=== PATIENT | male | born 1950 | race Caucasian/White ===

== ENCOUNTER → 2017-01-16 | Outpatient (CLI) | payer MEDICAID ==
--- NOTE | 2017-01-16 15:40 | REP ---
BLADDER ULTRASOUND: HISTORY: Neurogenic bladder. The kidneys are increased in echogenicity. The right kidney measures 5.2 cm in transverse by 5.6 cm in AP by 11.6 cm in cephalocaudal dimensions. The left kidney measures 5.1 cm in transverse by 5.1 cm in AP by 11.5 cm in cephalocaudal dimensions. There is cortical thinning in the right kidney. There is no hydronephrosis or mass. There are no filling defects in the urinary bladder. Bladder volume is 439.7 cubic centimeters. IMPRESSION: 1. The kidneys are increased in echogenicity. This may represent medical renal disease. 2. There is cortical thinning in the right kidney. Signed by Troy Balderrama MD 01/16/2017 03:47 P
[2017-01-16 19:59] LABS: MEAN CORPUSCULAR HEMOGLOBIN 30.6 pg (27.0-33.0); MEAN CORPUSCULAR HGB CONC 33.8 g/dl (32.0-36.5); MEAN CORPUSCULAR VOLUME 90.6 fl (80.0-96.0); PLATELET COUNT, AUTOMATED 271 10^3/uL (150-450); RED CELL DISTRIBUTION WIDTH 13.2 % (11.5-14.5); WHITE BLOOD COUNT 7.4 10^3/uL (4.0-10.0)
[2017-01-16 20:03] LABS: CALCIUM LEVEL 9.9 MG/DL (8.8-10.2); CREATININE FOR GFR 1.39 MG/DL (0.70-1.30); GLOMERULAR FILTRATION RATE 54.8 (>49); POTASSIUM SERUM 4.2 MEQ/L (3.5-5.1)
== END ==
LOC: M SMT 13:05
PROVIDERS: ATTEND Nurse Practitioner Women's Health
DX: N31.9 Neuromuscular dysfunction of bladder, unspecified (principal); N40.1 Benign prostatic hyperplasia with lower urinary tract symptoms

== ENCOUNTER → 2017-12-03 | Outpatient (CLI) | payer MEDICAID | LOC: M RAD 12:16 | DX: N31.9 Neuromuscular dysfunction of bladder, unspecified (principal); N40.1 Benign prostatic hyperplasia with lower urinary tract symptoms | CPT/HCPCS: 76775 ==

== ENCOUNTER → 2017-12-03 | Outpatient (CLI) | payer MEDICAID ==
[2017-12-03 13:40] LABS: HEMATOCRIT 35.7 % (42.0-52.0); HEMOGLOBIN 12.1 g/dl (13.5-17.5); MEAN CORPUSCULAR HEMOGLOBIN 31.5 pg (27.0-33.0); MEAN CORPUSCULAR HGB CONC 33.9 g/dl (32.0-36.5); PLATELET COUNT, AUTOMATED 221 10^3/uL (150-450); RED BLOOD COUNT 3.84 10^6/uL (4.30-6.10); RED CELL DISTRIBUTION WIDTH 12.5 % (11.5-14.5); WHITE BLOOD COUNT 7.9 10^3/uL (4.0-10.0)
[2017-12-03 13:53] LABS: ANION GAP 9 MEQ/L (8-16); BLOOD UREA NITROGEN 50 MG/DL (7-18); CALCIUM LEVEL 10.7 MG/DL (8.8-10.2); CARBON DIOXIDE LEVEL 26 MEQ/L (21-32); CHLORIDE LEVEL 106 MEQ/L (98-107); CREATININE FOR GFR 2.98 MG/DL (0.70-1.30); GLOMERULAR FILTRATION RATE 22.7 (>49); GLUCOSE, FASTING 92 MG/DL (70-100); POTASSIUM SERUM 4.8 MEQ/L (3.5-5.1); SODIUM LEVEL 141 MEQ/L (136-145)
[2017-12-03 13:53] LABS: PSA SCREENING 0.24 NG/ML (< 4.0)
== END ==
LOC: M LAB 12:23
DX: Z12.5 Encounter for screening for malignant neoplasm of prostate (principal); N31.9 Neuromuscular dysfunction of bladder, unspecified
CPT/HCPCS: 80048

== ENCOUNTER → 2018-01-01 | Outpatient (REF) ==
[2018-01-01 10:42] LABS: HEMATOCRIT 29.6 % (42.0-52.0); HEMOGLOBIN 9.7 g/dl (13.5-17.5); MEAN CORPUSCULAR HEMOGLOBIN 30.9 pg (27.0-33.0); MEAN CORPUSCULAR HGB CONC 32.8 g/dl (32.0-36.5); MEAN CORPUSCULAR VOLUME 94.3 fl (80.0-96.0); PLATELET COUNT, AUTOMATED 264 10^3/uL (150-450); RED BLOOD COUNT 3.14 10^6/uL (4.30-6.10); RED CELL DISTRIBUTION WIDTH 12.9 % (11.5-14.5); WHITE BLOOD COUNT 12.8 10^3/uL (4.0-10.0)
[2018-01-01 10:59] LABS: ANION GAP 10 MEQ/L (8-16); BLOOD UREA NITROGEN 50 MG/DL (7-18); CALCIUM LEVEL 9.3 MG/DL (8.8-10.2); CARBON DIOXIDE LEVEL 24 MEQ/L (21-32); CHLORIDE LEVEL 110 MEQ/L (98-107); CREATININE FOR GFR 4.35 MG/DL (0.70-1.30); GLOMERULAR FILTRATION RATE 14.6 (>49); GLUCOSE, FASTING 110 MG/DL (70-100); IRON (FE) 69 UG/DL (65-175); PERCENT SATURATION 25.7 % (19.7-50.0); POTASSIUM SERUM 3.6 MEQ/L (3.5-5.1); SODIUM LEVEL 144 MEQ/L (136-145); TOTAL IRON BINDING CAPACITY 268 UG/DL (250-450)
== END ==
DX: D64.9 Anemia, unspecified (principal)

== ENCOUNTER → 2018-01-02 | Outpatient (REF) ==
[2018-01-02 08:30] LABS: HEMATOCRIT 28.3 % (42.0-52.0); HEMOGLOBIN 9.5 g/dl (13.5-17.5); MEAN CORPUSCULAR HEMOGLOBIN 30.9 pg (27.0-33.0); MEAN CORPUSCULAR HGB CONC 33.6 g/dl (32.0-36.5); MEAN CORPUSCULAR VOLUME 92.2 fl (80.0-96.0); PLATELET COUNT, AUTOMATED 257 10^3/uL (150-450); RED BLOOD COUNT 3.07 10^6/uL (4.30-6.10); WHITE BLOOD COUNT 11.8 10^3/uL (4.0-10.0)
== END ==
DX: D72.829 Elevated white blood cell count, unspecified (principal)

== ENCOUNTER → 2018-01-04 | Outpatient (REF) ==
[2018-01-04 09:42] LABS: HEMATOCRIT 30.5 % (42.0-52.0); MEAN CORPUSCULAR HEMOGLOBIN 31.3 pg (27.0-33.0); MEAN CORPUSCULAR HGB CONC 32.8 g/dl (32.0-36.5); MEAN CORPUSCULAR VOLUME 95.3 fl (80.0-96.0); PLATELET COUNT, AUTOMATED 304 10^3/uL (150-450); RED CELL DISTRIBUTION WIDTH 13.1 % (11.5-14.5); WHITE BLOOD COUNT 11.8 10^3/uL (4.0-10.0)
[2018-01-04 10:17] LABS: ANION GAP 10 MEQ/L (8-16); BLOOD UREA NITROGEN 41 MG/DL (7-18); CALCIUM LEVEL 8.6 MG/DL (8.8-10.2); CARBON DIOXIDE LEVEL 28 MEQ/L (21-32); CHLORIDE LEVEL 105 MEQ/L (98-107); CREATININE FOR GFR 3.18 MG/DL (0.70-1.30); GLUCOSE, FASTING 75 MG/DL (70-100); POTASSIUM SERUM 3.6 MEQ/L (3.5-5.1); SODIUM LEVEL 143 MEQ/L (136-145)
== END ==
DX: N18.9 Chronic kidney disease, unspecified (principal)

== ENCOUNTER → 2018-01-07 | Outpatient (REF) ==
[2018-01-07 10:31] LABS: HEMATOCRIT 32.4 % (42.0-52.0); MEAN CORPUSCULAR HEMOGLOBIN 31.7 pg (27.0-33.0); MEAN CORPUSCULAR VOLUME 93.4 fl (80.0-96.0); PLATELET COUNT, AUTOMATED 423 10^3/uL (150-450); RED BLOOD COUNT 3.47 10^6/uL (4.30-6.10); RED CELL DISTRIBUTION WIDTH 12.8 % (11.5-14.5)
[2018-01-07 10:47] LABS: ANION GAP 10 MEQ/L (8-16); BLOOD UREA NITROGEN 36 MG/DL (7-18); CARBON DIOXIDE LEVEL 29 MEQ/L (21-32); CHLORIDE LEVEL 98 MEQ/L (98-107); CREATININE FOR GFR 3.01 MG/DL (0.70-1.30); GLOMERULAR FILTRATION RATE 22.4 (>49); GLUCOSE, FASTING 184 MG/DL (70-100); POTASSIUM SERUM 3.6 MEQ/L (3.5-5.1); SODIUM LEVEL 137 MEQ/L (136-145)
== END ==
DX: N18.9 Chronic kidney disease, unspecified (principal)

== ENCOUNTER → 2018-01-09 | Outpatient (REF) ==
[2018-01-09 09:28] LABS: HEMATOCRIT 29.9 % (42.0-52.0); HEMOGLOBIN 10.1 g/dl (13.5-17.5); MEAN CORPUSCULAR HEMOGLOBIN 31.1 pg (27.0-33.0); MEAN CORPUSCULAR HGB CONC 33.8 g/dl (32.0-36.5); PLATELET COUNT, AUTOMATED 410 10^3/uL (150-450); RED BLOOD COUNT 3.25 10^6/uL (4.30-6.10); RED CELL DISTRIBUTION WIDTH 12.9 % (11.5-14.5); WHITE BLOOD COUNT 13.5 10^3/uL (4.0-10.0)
== END ==
DX: R31.9 Hematuria, unspecified (principal)

== ENCOUNTER → 2018-01-15 | Outpatient (REF) ==
[2018-01-15 10:10] LABS: HEMATOCRIT 31.3 % (42.0-52.0); HEMOGLOBIN 10.3 g/dl (13.5-17.5); MEAN CORPUSCULAR HGB CONC 32.9 g/dl (32.0-36.5); MEAN CORPUSCULAR VOLUME 94.3 fl (80.0-96.0); PLATELET COUNT, AUTOMATED 370 10^3/uL (150-450); RED BLOOD COUNT 3.32 10^6/uL (4.30-6.10); RED CELL DISTRIBUTION WIDTH 12.5 % (11.5-14.5); WHITE BLOOD COUNT 9.9 10^3/uL (4.0-10.0)
[2018-01-15 10:28] LABS: ANION GAP 8 MEQ/L (8-16); BLOOD UREA NITROGEN 37 MG/DL (7-18); CALCIUM LEVEL 8.9 MG/DL (8.8-10.2); CARBON DIOXIDE LEVEL 30 MEQ/L (21-32); CHLORIDE LEVEL 99 MEQ/L (98-107); CREATININE FOR GFR 2.19 MG/DL (0.70-1.30); GLOMERULAR FILTRATION RATE 32.3 (>49); GLUCOSE, FASTING 91 MG/DL (70-100); SODIUM LEVEL 137 MEQ/L (136-145)
== END ==
DX: N18.9 Chronic kidney disease, unspecified (principal)

== ENCOUNTER → 2018-01-22 | Outpatient (REF) ==
[2018-01-22 10:11] LABS: HEMATOCRIT 30.6 % (42.0-52.0); MEAN CORPUSCULAR HEMOGLOBIN 30.3 pg (27.0-33.0); MEAN CORPUSCULAR HGB CONC 32.7 g/dl (32.0-36.5); MEAN CORPUSCULAR VOLUME 92.7 fl (80.0-96.0); PLATELET COUNT, AUTOMATED 310 10^3/uL (150-450); RED CELL DISTRIBUTION WIDTH 12.9 % (11.5-14.5); WHITE BLOOD COUNT 10.2 10^3/uL (4.0-10.0)
[2018-01-22 10:37] LABS: ANION GAP 9 MEQ/L (8-16); BLOOD UREA NITROGEN 32 MG/DL (7-18); CALCIUM LEVEL 9.1 MG/DL (8.8-10.2); CARBON DIOXIDE LEVEL 29 MEQ/L (21-32); CHLORIDE LEVEL 103 MEQ/L (98-107); CREATININE FOR GFR 1.99 MG/DL (0.70-1.30); GLOMERULAR FILTRATION RATE 36.1 (>49); GLUCOSE, FASTING 86 MG/DL (70-100); POTASSIUM SERUM 4.2 MEQ/L (3.5-5.1); SODIUM LEVEL 141 MEQ/L (136-145)
== END ==
DX: N18.9 Chronic kidney disease, unspecified (principal)

== ENCOUNTER → 2018-01-29 | Outpatient (REF) ==
[2018-01-29 10:22] LABS: HEMATOCRIT 32.7 % (42.0-52.0); HEMOGLOBIN 10.6 g/dl (13.5-17.5); MEAN CORPUSCULAR HEMOGLOBIN 30.6 pg (27.0-33.0); MEAN CORPUSCULAR HGB CONC 32.4 g/dl (32.0-36.5); MEAN CORPUSCULAR VOLUME 94.5 fl (80.0-96.0); PLATELET COUNT, AUTOMATED 325 10^3/uL (150-450); RED BLOOD COUNT 3.46 10^6/uL (4.30-6.10); RED CELL DISTRIBUTION WIDTH 13.2 % (11.5-14.5); WHITE BLOOD COUNT 9.9 10^3/uL (4.0-10.0)
[2018-01-29 10:48] LABS: ANION GAP 9 MEQ/L (8-16); BLOOD UREA NITROGEN 36 MG/DL (7-18); CALCIUM LEVEL 9.5 MG/DL (8.8-10.2); CARBON DIOXIDE LEVEL 29 MEQ/L (21-32); CHLORIDE LEVEL 103 MEQ/L (98-107); CREATININE FOR GFR 1.96 MG/DL (0.70-1.30); GLOMERULAR FILTRATION RATE 36.7 (>49); GLUCOSE, FASTING 87 MG/DL (70-100); POTASSIUM SERUM 4.3 MEQ/L (3.5-5.1); SODIUM LEVEL 141 MEQ/L (136-145)
== END ==
DX: N18.9 Chronic kidney disease, unspecified (principal)

== ENCOUNTER → 2018-02-06 | Outpatient (REF) ==
[2018-02-06 09:58] LABS: HEMATOCRIT 32.5 % (42.0-52.0); MEAN CORPUSCULAR HEMOGLOBIN 30.8 pg (27.0-33.0); MEAN CORPUSCULAR HGB CONC 33.8 g/dl (32.0-36.5); PLATELET COUNT, AUTOMATED 349 10^3/uL (150-450); RED BLOOD COUNT 3.57 10^6/uL (4.30-6.10); WHITE BLOOD COUNT 8.5 10^3/uL (4.0-10.0)
[2018-02-06 10:22] LABS: CALCIUM LEVEL 10.1 MG/DL (8.8-10.2); CREATININE FOR GFR 1.74 MG/DL (0.70-1.30); GLOMERULAR FILTRATION RATE 42.1 (>49); POTASSIUM SERUM 3.8 MEQ/L (3.5-5.1)
== END ==
PROVIDERS: ATTEND Internal Medicine
DX: N18.9 Chronic kidney disease, unspecified (principal)

== ENCOUNTER → 2018-05-07 | Outpatient (REF) | payer MEDICARE, MEDICAID ==
[2018-05-07 13:14] LABS: BASO # 0.1 10^3/uL (0.0-0.2); BASO % 1.3 % (0.0-1.0); EOS # 0.4 10^3/uL (0.0-0.50); EOS % 7.9 % (0.0-3.0); HEMOGLOBIN 11.6 g/dl (13.5-17.5); LYMPH % 18.5 % (24.0-44.0); MEAN CORPUSCULAR HEMOGLOBIN 29.4 pg (27.0-33.0); MEAN CORPUSCULAR HGB CONC 32.2 g/dl (32.0-36.5); MEAN CORPUSCULAR VOLUME 91.4 fl (80.0-96.0); MONO # 0.4 10^3/uL (0.0-0.8); MONO % 6.8 % (0.0-5.0); NEUTROPHILS # 3.5 10^3/uL (1.8-7.7); NEUTROPHILS % 65.1 % (36.0-66.0); PLATELET COUNT, AUTOMATED 275 10^3/uL (150-450); RED BLOOD COUNT 3.94 10^6/uL (4.30-6.10); WHITE BLOOD COUNT 5.3 10^3/uL (4.0-10.0)
[2018-05-07 13:29] LABS: CALCIUM LEVEL 8.8 MG/DL (8.8-10.2); CREATININE FOR GFR 1.49 MG/DL (0.70-1.30); GLOMERULAR FILTRATION RATE 50.4 (>49); PHOSPHORUS LEVEL 2.4 MG/DL (2.5-4.9); POTASSIUM SERUM 3.9 MEQ/L (3.5-5.1)
[2018-05-07 13:30] LABS: ALBUMIN 3.5 GM/DL (3.2-5.2); BILIRUBIN,TOTAL 0.2 MG/DL (0.2-1.0); MAGNESIUM LEVEL 1.5 MG/DL (1.8-2.4); TOTAL PROTEIN 6.6 GM/DL (6.4-8.2)
== END ==
LOC: M LAB REF 11:58
PROVIDERS: ATTEND Family Medicine
DX: N18.3 Chronic kidney disease, stage 3 (moderate) (principal); E87.5 Hyperkalemia

== ENCOUNTER 2021-02-23 20:27 | Inpatient (IN) | payer MEDICARE, MEDICAID ==
[~2021-02-23] VITALS: Ht 172.7 cm; Wt 87.0 kg
[2021-02-23 22:15] VITALS: BP 136/83
[2021-02-23 22:38] LABS: BASO # 0.1 10^3/uL (0.0-0.2); BASO % 0.6 % (0.0-1.0); EOS # 0.2 10^3/uL (0.0-0.5); EOS % 1.5 % (0.0-3.0); HEMATOCRIT 40.1 % (42.0-52.0); HEMOGLOBIN 13.3 g/dl (13.5-17.5); LYMPH # 1.2 10^3/uL (1.5-5.0); LYMPH % 8.6 % (24.0-44.0); MEAN CORPUSCULAR HEMOGLOBIN 32.2 pg (27.0-33.0); MEAN CORPUSCULAR HGB CONC 33.2 g/dl (32.0-36.5); MEAN CORPUSCULAR VOLUME 97.1 fl (80.0-96.0); MONO # 1.3 10^3/uL (0.0-0.8); MONO % 9.2 % (2.0-8.0); NEUTROPHILS % 79.7 % (36.0-66.0); PLATELET COUNT, AUTOMATED 296 10^3/uL (150-450); RED BLOOD COUNT 4.13 10^6/uL (4.30-6.10); WHITE BLOOD COUNT 13.9 10^3/uL (4.0-10.0)
[2021-02-23] MEDS ORDERED: MORPHINE 2 MG/ML 1ML VIAL (J2270) IV PRN (23:00)
[2021-02-23] MEDS ORDERED: NS 1,000 ML IV SCH (23:00)
[2021-02-23] MEDS ORDERED: MOM 30ML SUSPENSION UDC PO PRN (23:00)
[2021-02-23 23:07] LABS: ALBUMIN 3.6 GM/DL (3.2-5.2); BILIRUBIN,TOTAL 0.5 MG/DL (0.2-1.0); CALCIUM LEVEL 14.2 MG/DL (8.8-10.2); CREATININE FOR GFR 6.25 MG/DL (0.70-1.30); GLOMERULAR FILTRATION RATE 9.5 (>49); POTASSIUM SERUM 5.9 MEQ/L (3.5-5.1)
[2021-02-23] MEDS ORDERED: DULO30CA9 PO (23:51)
[2021-02-23] MEDS ORDERED: RA M500C PO (23:51)
[2021-02-23] MEDS ORDERED: FERR1TAB8 PO (23:51)
[2021-02-23] MEDS ORDERED: FAMO20TA4 PO (23:51)
[2021-02-23] MEDS ORDERED: PANT40TA29 PO (23:51)
[2021-02-23] MEDS ORDERED: AMLO2.5T3 PO (23:51)
[2021-02-23] MEDS ORDERED: FISH1000 PO (23:51)
[2021-02-23] MEDS ORDERED: GABA-282 PO (23:51)
[2021-02-23] MEDS ORDERED: ASPI-161 PO (23:51)
[2021-02-23] MEDS ORDERED: FINA5TAB2 PO (23:51)
[2021-02-23] MEDS ORDERED: ATOR1TAB21 PO (23:51)
[2021-02-23] MEDS ORDERED: METO1TAB7 PO (23:51)
[2021-02-23] MEDS ORDERED: MIRT-60 PO (23:51)
[2021-02-23] MEDS ORDERED: HOME MED LIST COMPLETE! XX SCH (23:55)
[2021-02-24 00:08] LABS: APPEARANCE, URINE HAZY (CLEAR); BACTERIA, URINE AUTO 1+ (NEGATIVE); BILIRUBIN, URINE AUTO NEGATIVE (NEGATIVE); BLOOD, URINE BLOOD 1+ (NEGATIVE); COLOR, URINE YELLOW (YELLOW); GLUCOSE, URINE (UA) AUTO NEGATIVE (NEGATIVE); KETONE, URINE AUTO NEGATIVE (NEGATIVE); LEUKOCYTE ESTERASE, URINE AUTO 3+ (NEGATIVE); MUCUS, URINE SMALL (NEGATIVE); NITRITE, URINE AUTO NEGATIVE (NEGATIVE); PROTEIN, URINE AUTO 1+ mg/dL (NEGATIVE); RBC, URINE AUTO 4 /HPF (0-3); SPECIFIC GRAVITY URINE AUTO 1.012 (1.002-1.035); SQUAMOUS EPITHELIAL CELL UR AU 0 /HPF (0-6); URIC ACID CRYSTALS SMALL; UROBILINOGEN, URINE AUTO 0.2 mg/dL (0.0-2.0); WBC, URINE AUTO 86 /HPF (0-3)
[2021-02-24 00:20] LABS: CREATININE,RANDOM URINE 68.7 MG/DL
[2021-02-24 00:40] LABS: MAGNESIUM LEVEL 3.7 MG/DL (1.8-2.4)
[2021-02-24] MEDS ORDERED: SOD POLYSTYRENE SULFONATE SUSP 15 GM/60 ML UD PO ONE (02:00)
[2021-02-24] MEDS: ACETAMINOPHEN TAB 650MG DOSE (2X325MG) PO PRN ×2 (03:02→09:54)
[2021-02-24] MEDS: ATORVASTATIN 20 MG TAB PO SCH (03:02)
[2021-02-24] MEDS: MIRTAZAPINE 15 MG TAB PO SCH ×2 (03:02→21:00)
[2021-02-24] MEDS: FINASTERIDE 5 MG TAB PO SCH ×2 (03:02→21:00)
[2021-02-24] MEDS: METOPROLOL SUCC (TopROL XL) 50MG **XL** TAB PO SCH (03:03)
[2021-02-24 04:35] LABS: HEMATOCRIT 35.2 % (42.0-52.0); HEMOGLOBIN 11.6 g/dl (13.5-17.5); MEAN CORPUSCULAR HEMOGLOBIN 32.1 pg (27.0-33.0); MEAN CORPUSCULAR VOLUME 97.5 fl (80.0-96.0); PLATELET COUNT, AUTOMATED 249 10^3/uL (150-450); RED BLOOD COUNT 3.61 10^6/uL (4.30-6.10); WHITE BLOOD COUNT 11.6 10^3/uL (4.0-10.0)
[2021-02-24 05:11] LABS: ALBUMIN 3.1 GM/DL (3.2-5.2); BILIRUBIN,TOTAL 0.4 MG/DL (0.2-1.0); CALCIUM LEVEL 12.9 MG/DL (8.8-10.2); CREATININE FOR GFR 6.21 MG/DL (0.70-1.30); GLOMERULAR FILTRATION RATE 9.6 (>49); MAGNESIUM LEVEL 3.4 MG/DL (1.8-2.4); POTASSIUM SERUM 5.2 MEQ/L (3.5-5.1); TOTAL PROTEIN 7.1 GM/DL (6.4-8.2)
[2021-02-24] MEDS: HEPARIN SOD (PORCINE) 5000UNITS/ML 1ML VIAL/SYRINGE SC SCH ×2 (05:33→14:00)
[2021-02-24 06:00] VITALS: BP 130/77
[2021-02-24] MEDS ORDERED: ASPIRIN 81MG ENTERIC TABLET PO SCH (09:00)
[2021-02-24] MEDS: DOCUSATE SODIUM 100MG CAPSULE PO SCH ×2 (09:54→21:00)
[2021-02-24] MEDS: DULoxetine 30MG CAPSULE (CYMBALTA) PO SCH (09:54)
[2021-02-24] MEDS: PANTOPRAZOLE 40MG TAB (PROTONIX) PO SCH (09:54)
[2021-02-24] MEDS: GABAPENTIN 300 MG CAP PO SCH (09:54)
[2021-02-24 11:02] LABS: CALCIUM LEVEL 13.2 MG/DL (8.8-10.2); CREATININE FOR GFR 6.16 MG/DL (0.70-1.30); GLOMERULAR FILTRATION RATE 9.7 (>49); POTASSIUM SERUM 4.8 MEQ/L (3.5-5.1)
[2021-02-24] MEDS ORDERED: NS 1,000 ML IV SCH (11:15)
[2021-02-24 12:35] LABS: TOTAL 25(OH) VITAMIN D 53.7 NG/ML (30.0-100.0)
[2021-02-24 12:36] LABS: PTH INTACT 12.2 PG/ML (18.5-88.0)
[2021-02-24 14:00] VITALS: BP 130/71
[2021-02-24] MEDS ORDERED: SUGAMMADEX SODIUM 500 MG/5 ML VIAL (BRIDION) As Ordered ONE (16:36)
[2021-02-24] MEDS ORDERED: KETOROLAC 60MG 2ML VIAL As Ordered ONE (16:36)
[2021-02-24] MEDS ORDERED: dexameTHASONE 4 MG/ML 1ML VIAL (J1100 PER 1MG) As Ordered ONE (16:36)
[2021-02-24] MEDS ORDERED: propofoL 200 MG/20 ML VIAL As Ordered ONE (16:36)
[2021-02-24] MEDS ORDERED: fentaNYL 100 MCG/2 ML INJECTION (J3010) As Ordered ONE (16:36)
[2021-02-24] MEDS ORDERED: ACETAMINOPHEN 1000MG 100ML IV BTL (OFIRMEV) (J0131 PER 10MG) As Ordered ONE (16:36)
[2021-02-24] MEDS ORDERED: HYDROmorphone HCL 2MG/ML 1ML VIAL As Ordered ONE (16:36)
[2021-02-24] MEDS ORDERED: MIDAZOLAM INJ 2MG/2ML VIAL (J2250 PER 1MG) As Ordered ONE (16:36)
[2021-02-24] MEDS ORDERED: ROCURONIUM BROMIDE 50 MG/5 ML VIAL As Ordered ONE (16:36)
[2021-02-24] MEDS ORDERED: ONDANSETRON 4MG/2ML VIAL As Ordered ONE (16:36)
[2021-02-24] MEDS ORDERED: LIDOCAINE 2% 100MG/5ML SDV (FOR ANES.) As Ordered ONE (16:36)
[2021-02-24] MEDS ORDERED: TRANEXAMIC ACID 100 MG/ML 10ML VIAL As Ordered ONE (16:42)
[2021-02-24] MEDS ORDERED: ceFAZolin 2 GM/D5W 50 ML IV BAG (J0690 PER 500MG) As Ordered ONE (17:03)
[2021-02-24] MEDS ORDERED: PHENYLephrine 500MCG 5ML (100MCG/ML) SYRINGE As Ordered ONE ×2 (17:33→18:10)
[2021-02-24] MEDS ORDERED: ePHEDrine SULFATE 25 MG/5 ML(5MG/ML) SYRINGE As Ordered ONE ×2 (17:33→18:10)
[2021-02-24] MEDS ORDERED: BUPIVACAINE HCL 0.5% 30 ML VIAL As Ordered ONE (17:38)
[2021-02-24] MEDS ORDERED: ROPIVA 125MG/EPINEPH 0.25MG/CLONID 40MCG/KETOR 15MG IN NS 50ML SYRINGE PA ONE (18:00)
[2021-02-24] MEDS ORDERED: GLYCOPYRROLATE INJ 0.2 MG/ML 2 ML VIAL As Ordered ONE (18:11)
[2021-02-24] MEDS ORDERED: METOCLOPRAMIDE INJ 10MG/2ML VIAL (J2765 PER 1) As Ordered ONE (18:11)
[2021-02-24] MEDS ORDERED: ONDANSETRON 4MG/2ML VIAL IV PRN ×2 (20:45→23:55)
[2021-02-24] MEDS ORDERED: HYDROMORPHONE HCL 0.5 MG/ 0.5 ML SYRINGE (J1170 PER 1) IV PRN (20:45)
[2021-02-24] MEDS ORDERED: fentaNYL 100 MCG/2 ML INJECTION (J3010) IV PRN (20:45)
[2021-02-24] MEDS ORDERED: oxyCODONE 5MG TAB PO PRN (20:45)
[2021-02-24] MEDS ORDERED: NALOXONE INJ 0.4MG/1ML VIAL (J2310 PER 1MG) As Ordered ONE (21:17)
[2021-02-24] MEDS ORDERED: NALOXONE INJ 0.4MG/1ML VIAL (J2310 PER 1MG) IV STA (21:29)
[2021-02-24 22:05] VITALS: BP 127/78
[2021-02-24 22:30] VITALS: BP 128/78
[2021-02-24 23:00] VITALS: BP 103/71
[2021-02-24] MEDS ORDERED: LR 1,000 ML IV SCH (23:55)
[2021-02-25] VITALS (8 sets, daily range): BP systolic 103–133; BP diastolic 59–82
[2021-02-25] MEDS ORDERED: oxyCODONE 5MG TAB PO PRN ×2 (00:05)
[2021-02-25] MEDS ORDERED: traMADol 50 MG TAB PO PRN (00:05)
[2021-02-25] MEDS: HEPARIN SOD (PORCINE) 5000UNITS/ML 1ML VIAL/SYRINGE SC SCH ×4 (01:07→20:54)
[2021-02-25] MEDS: ceFAZolin SOD 2 GM in IV 1 EA IV SCH ×2 (03:32→11:30)
[2021-02-25 06:21] LABS: VENOUS HCO3 21.8 MEQ/L (23.0-27.0); VENOUS O2 SATURATION 98.6 % (60.0-80.0); VENOUS PARTIAL PRESSURE CO2 33.4 mmHg (38.0-50.0); VENOUS PARTIAL PRESSURE O2 125.9 mmHg (30.0-50.0); VENOUS PH 7.432 UNITS (7.330-7.430); VENOUS STANDARD HCO3 22.8 MEQ/L; VENOUS TOTAL CO2 22.8 MEQ/L (24.0-28.0)
[2021-02-25 06:48] LABS: CALCIUM LEVEL 11.2 MG/DL (8.8-10.2); CREATININE FOR GFR 6.35 MG/DL (0.70-1.30); GLOMERULAR FILTRATION RATE 9.4 (>49); PHOSPHORUS LEVEL 5.3 MG/DL (2.5-4.9); POTASSIUM SERUM 5.4 MEQ/L (3.5-5.1)
[2021-02-25] MEDS: FAMOTIDINE 20 MG TAB PO SCH (07:06)
[2021-02-25] MEDS: ACETAMINOPHEN TAB 650MG DOSE (2X325MG) PO SCH ×4 (07:07→18:00)
[2021-02-25] MEDS: ATORVASTATIN 20 MG TAB PO SCH ×2 (07:07→20:53)
[2021-02-25] MEDS: METOPROLOL SUCC (TopROL XL) 50MG **XL** TAB PO SCH ×2 (07:11→20:54)
[2021-02-25 08:34] LABS: BASO % 0.1 % (0.0-1.0); HEMATOCRIT 31.6 % (42.0-52.0); HEMOGLOBIN 10.1 g/dl (13.5-17.5); LYMPH # 0.5 10^3/uL (1.5-5.0); LYMPH % 5.8 % (24.0-44.0); MEAN CORPUSCULAR HEMOGLOBIN 31.6 pg (27.0-33.0); MEAN CORPUSCULAR VOLUME 98.8 fl (80.0-96.0); MONO # 0.3 10^3/uL (0.0-0.8); MONO % 3.7 % (2.0-8.0); NEUTROPHILS # 8.3 10^3/uL (1.5-8.5); NEUTROPHILS % 90.1 % (36.0-66.0); PLATELET COUNT, AUTOMATED 198 10^3/uL (150-450); WHITE BLOOD COUNT 9.2 10^3/uL (4.0-10.0)
[2021-02-25] MEDS: ASPIRIN 81MG ENTERIC TABLET PO SCH ×2 (08:44→20:53)
[2021-02-25] MEDS: DULoxetine 30MG CAPSULE (CYMBALTA) PO SCH (08:44)
[2021-02-25] MEDS: GABAPENTIN 300 MG CAP PO SCH (08:45)
[2021-02-25] MEDS: DOCUSATE SODIUM 100MG CAPSULE PO SCH ×2 (08:45→20:53)
[2021-02-25] MEDS: PANTOPRAZOLE 40MG TAB (PROTONIX) PO SCH (08:45)
[2021-02-25] MEDS: ASCORBIC ACID 500 MG TAB PO SCH (08:45)
[2021-02-25] MEDS ORDERED: LIDOCAINE 1% MDV 20ML VIAL As Ordered ONE (10:24)
[2021-02-25] MEDS ORDERED: MIDAZOLAM INJ 2MG/2ML VIAL (J2250 PER 1MG) As Ordered ONE (10:38)
[2021-02-25] MEDS ORDERED: diphenhydrAMINE 50MG/ML VIAL (J1200) As Ordered ONE (10:38)
[2021-02-25] MEDS ORDERED: fentaNYL 100 MCG/2 ML INJECTION (J3010) As Ordered ONE (10:38)
[2021-02-25 12:31] LABS: HEPATITIS B CORE ANTIBODY IGM NEGATIVE (NEGATIVE); HEPATITIS B SURFACE ANTIBODY NEGATIVE (POSITIVE); HEPATITIS B SURFACE ANTIGEN NEGATIVE (NEGATIVE); HEPATITIS C VIRUS ABY INDEX < 0.0 INDEX (<0.8)
[2021-02-25] MEDS ORDERED: SODIUM CHLORIDE 0.9% 1000ML IV PRN (12:40)
[2021-02-25] MEDS: MIRTAZAPINE 15 MG TAB PO SCH (20:53)
[2021-02-25] MEDS: FINASTERIDE 5 MG TAB PO SCH (20:53)
[2021-02-25] MEDS: SENNA 8.6 MG TAB (SENOKOT) PO PRN (20:54)
[2021-02-25 22:05] LABS: RSV AMPLIFICATION NEGATIVE (NEGATIVE)
[2021-02-26] MEDS ORDERED: UNRESOLVED CLARIFICATION ENTRY XX SCH (00:01)
[2021-02-26] MEDS: ACETAMINOPHEN TAB 650MG DOSE (2X325MG) PO SCH ×5 (00:07→23:26)
[2021-02-26 02:16] VITALS: BP 123/79
[2021-02-26 06:00] VITALS: BP 138/79
[2021-02-26] MEDS: HEPARIN SOD (PORCINE) 5000UNITS/ML 1ML VIAL/SYRINGE SC SCH ×3 (06:10→22:09)
[2021-02-26] MEDS: PANTOPRAZOLE 40MG TAB (PROTONIX) PO SCH (06:16)
[2021-02-26] MEDS: ASPIRIN 81MG ENTERIC TABLET PO SCH ×2 (06:16→22:08)
[2021-02-26] MEDS: DULoxetine 30MG CAPSULE (CYMBALTA) PO SCH (06:16)
[2021-02-26] MEDS: GABAPENTIN 300 MG CAP PO SCH (06:16)
[2021-02-26] MEDS: ASCORBIC ACID 500 MG TAB PO SCH (06:16)
[2021-02-26] MEDS: DOCUSATE SODIUM 100MG CAPSULE PO SCH ×2 (06:16→22:08)
[2021-02-26 06:37] LABS: BASO % 0.4 % (0.0-1.0); EOS # 0.3 10^3/uL (0.0-0.5); EOS % 2.8 % (0.0-3.0); HEMATOCRIT 29.3 % (42.0-52.0); HEMOGLOBIN 9.5 g/dl (13.5-17.5); LYMPH % 11.1 % (24.0-44.0); MEAN CORPUSCULAR HGB CONC 32.4 g/dl (32.0-36.5); MEAN CORPUSCULAR VOLUME 98.7 fl (80.0-96.0); MONO # 0.9 10^3/uL (0.0-0.8); MONO % 9.9 % (2.0-8.0); NEUTROPHILS % 75.3 % (36.0-66.0); PLATELET COUNT, AUTOMATED 201 10^3/uL (150-450); RED BLOOD COUNT 2.97 10^6/uL (4.30-6.10); WHITE BLOOD COUNT 9.3 10^3/uL (4.0-10.0)
[2021-02-26 07:15] LABS: CALCIUM LEVEL 11.1 MG/DL (8.8-10.2); CREATININE FOR GFR 3.91 MG/DL (0.70-1.30); GLOMERULAR FILTRATION RATE 16.4 (>49); MAGNESIUM LEVEL 2.4 MG/DL (1.8-2.4); POTASSIUM SERUM 4.3 MEQ/L (3.5-5.1)
[2021-02-26] MEDS ORDERED: SODIUM CHLORIDE 0.9% 1000ML IV PRN (08:15)
[2021-02-26] MEDS ORDERED: ISOVUE-370 76% 100ML VIAL As Ordered ONE (08:19)
[2021-02-26] MEDS: FERROUS SULFATE 325MG TAB PO SCH (12:49)
[2021-02-26 14:00] VITALS: BP 116/67
[2021-02-26 21:57] VITALS: BP 145/79
[2021-02-26] MEDS: MIRTAZAPINE 15 MG TAB PO SCH (22:08)
[2021-02-26] MEDS: FAMOTIDINE 20 MG TAB PO SCH (22:08)
[2021-02-26] MEDS: ATORVASTATIN 20 MG TAB PO SCH (22:08)
[2021-02-26] MEDS: FINASTERIDE 5 MG TAB PO SCH (22:08)
[2021-02-26] MEDS: METOPROLOL SUCC (TopROL XL) 50MG **XL** TAB PO SCH (22:09)
[2021-02-26] MEDS: SENNA 8.6 MG TAB (SENOKOT) PO PRN (22:09)
[2021-02-27 05:18] VITALS: BP 137/97
[2021-02-27] MEDS: HEPARIN SOD (PORCINE) 5000UNITS/ML 1ML VIAL/SYRINGE SC SCH ×3 (05:28→20:36)
[2021-02-27] MEDS: ACETAMINOPHEN TAB 650MG DOSE (2X325MG) PO SCH (05:29)
[2021-02-27 06:06] LABS: BASO # 0.1 10^3/uL (0.0-0.2); BASO % 0.8 % (0.0-1.0); EOS # 0.8 10^3/uL (0.0-0.5); EOS % 7.8 % (0.0-3.0); HEMATOCRIT 32.6 % (42.0-52.0); HEMOGLOBIN 10.4 g/dl (13.5-17.5); LYMPH # 1.2 10^3/uL (1.5-5.0); LYMPH % 11.6 % (24.0-44.0); MEAN CORPUSCULAR HEMOGLOBIN 32.2 pg (27.0-33.0); MEAN CORPUSCULAR HGB CONC 31.9 g/dl (32.0-36.5); MEAN CORPUSCULAR VOLUME 100.9 fl (80.0-96.0); MONO % 9.2 % (2.0-8.0); NEUTROPHILS # 7.4 10^3/uL (1.5-8.5); PLATELET COUNT, AUTOMATED 221 10^3/uL (150-450); RED BLOOD COUNT 3.23 10^6/uL (4.30-6.10); WHITE BLOOD COUNT 10.5 10^3/uL (4.0-10.0)
[2021-02-27 06:33] LABS: CALCIUM LEVEL 10.5 MG/DL (8.8-10.2); CREATININE FOR GFR 3.21 MG/DL (0.70-1.30); GLOMERULAR FILTRATION RATE 20.6 (>49); MAGNESIUM LEVEL 1.9 MG/DL (1.8-2.4); PHOSPHORUS LEVEL 2.9 MG/DL (2.5-4.9); POTASSIUM SERUM 4.4 MEQ/L (3.5-5.1)
[2021-02-27] MEDS: DOCUSATE SODIUM 100MG CAPSULE PO SCH ×2 (08:19→20:35)
[2021-02-27] MEDS: PANTOPRAZOLE 40MG TAB (PROTONIX) PO SCH (08:19)
[2021-02-27] MEDS: DULoxetine 30MG CAPSULE (CYMBALTA) PO SCH (08:19)
[2021-02-27] MEDS: GABAPENTIN 300 MG CAP PO SCH (08:19)
[2021-02-27] MEDS: FERROUS SULFATE 325MG TAB PO SCH (08:19)
[2021-02-27] MEDS: ASPIRIN 81MG ENTERIC TABLET PO SCH ×2 (08:19→20:36)
[2021-02-27] MEDS: ASCORBIC ACID 500 MG TAB PO SCH (08:19)
[2021-02-27] MEDS: ACETAMINOPHEN TAB 650MG DOSE (2X325MG) PO PRN ×2 (13:32→20:37)
[2021-02-27 14:00] VITALS: BP 136/88
[2021-02-27 20:27] VITALS: BP 138/87
[2021-02-27 20:36] VITALS: BP 138/87
[2021-02-27] MEDS: FINASTERIDE 5 MG TAB PO SCH (20:36)
[2021-02-27] MEDS: MIRTAZAPINE 15 MG TAB PO SCH (20:36)
[2021-02-27] MEDS: ATORVASTATIN 20 MG TAB PO SCH (20:36)
[2021-02-27] MEDS: METOPROLOL SUCC (TopROL XL) 50MG **XL** TAB PO SCH (20:36)
[2021-02-28] MEDS: HEPARIN SOD (PORCINE) 5000UNITS/ML 1ML VIAL/SYRINGE SC SCH ×2 (05:49→13:47)
[2021-02-28 06:00] VITALS: BP 143/90
[2021-02-28 06:01] LABS: BASO # 0.1 10^3/uL (0.0-0.2); BASO % 0.4 % (0.0-1.0); EOS % 8.6 % (0.0-3.0); HEMATOCRIT 30.5 % (42.0-52.0); HEMOGLOBIN 9.8 g/dl (13.5-17.5); LYMPH # 1.2 10^3/uL (1.5-5.0); LYMPH % 10.5 % (24.0-44.0); MEAN CORPUSCULAR HEMOGLOBIN 32.1 pg (27.0-33.0); MEAN CORPUSCULAR HGB CONC 32.1 g/dl (32.0-36.5); MONO # 0.9 10^3/uL (0.0-0.8); MONO % 8.3 % (2.0-8.0); NEUTROPHILS # 7.9 10^3/uL (1.5-8.5); NEUTROPHILS % 71.4 % (36.0-66.0); PLATELET COUNT, AUTOMATED 234 10^3/uL (150-450); RED BLOOD COUNT 3.05 10^6/uL (4.30-6.10); WHITE BLOOD COUNT 11.1 10^3/uL (4.0-10.0)
[2021-02-28] MEDS ORDERED: DARBEPOETIN 100 MCG/0.5 ML *DIALYSIS* SYRINGE (J0882) IV SCH (07:15)
[2021-02-28] MEDS ORDERED: SODIUM CHLORIDE 0.9% 1000ML IV PRN (07:15)
[2021-02-28] MEDS: PANTOPRAZOLE 40MG TAB (PROTONIX) PO SCH (08:16)
[2021-02-28] MEDS: DOCUSATE SODIUM 100MG CAPSULE PO SCH (08:16)
[2021-02-28] MEDS: GABAPENTIN 300 MG CAP PO SCH (08:16)
[2021-02-28] MEDS: FERROUS SULFATE 325MG TAB PO SCH (08:16)
[2021-02-28] MEDS: ASPIRIN 81MG ENTERIC TABLET PO SCH (08:16)
[2021-02-28] MEDS: ACETAMINOPHEN TAB 650MG DOSE (2X325MG) PO PRN ×2 (08:16→14:40)
[2021-02-28] MEDS: DULoxetine 30MG CAPSULE (CYMBALTA) PO SCH (08:16)
[2021-02-28] MEDS: ASCORBIC ACID 500 MG TAB PO SCH (08:16)
[2021-02-28 09:30] LABS: ALBUMIN 2.7 GM/DL (3.2-5.2); CALCIUM LEVEL 10.1 MG/DL (8.8-10.2); CREATININE FOR GFR 3.57 MG/DL (0.70-1.30); GLOMERULAR FILTRATION RATE 18.2 (>49); PHOSPHORUS LEVEL 2.6 MG/DL (2.5-4.9); POTASSIUM SERUM 4.4 MEQ/L (3.5-5.1)
[2021-02-28] MEDS ORDERED: ASPI-551 PO (17:01)
[2021-03-01 12:07] LABS: PTH RELATED PEPTIDE < 2.0 pmol/L (.)
[2021-03-01 12:55] LABS: ALBUMIN 3.61 GM/DL (3.29-5.55); ALBUMIN % 51.6 % (55.8-66.1); ALPHA-1-GLOBULIN % 6.2 % (2.9-4.9); ALPHA-1-GLOBULINS 0.43 GM/DL (0.17-0.41); ALPHA-2-GLOBULINS 0.83 GM/DL (0.42-0.99); ALPHA-2-GLOBULINS % 11.9 % (7.1-11.8); BETA-1-GLOBULINS 0.45 GM/DL (0.28-0.60); BETA-1-GLOBULINS % 6.4 % (4.7-7.2); BETA-2-GLOBULINS 0.47 GM/DL (0.19-0.55); BETA-2-GLOBULINS % 6.7 % (3.2-6.5); GAMMA GLOBULIN % 17.2 % (11.1-18.8)
== END 2021-02-28 18:13 | DRG 673 ==
LOC: EEVIPCON 21:45 → M MSPAV 21:45
PROVIDERS: ADMIT Internal Medicine; ATTEND Internal Medicine
PROC: 0SRS0JA Replacement of Left Hip Joint, Femoral Surface with Synthetic Substitute, Uncemented, Open Approach (ICD-10-PCS; 2021-02-24)
PROC: 02HV33Z Insertion of Infusion Device into Superior Vena Cava, Percutaneous Approach (ICD-10-PCS; 2021-02-25)
PROC: 5A1D70Z Performance of Urinary Filtration, Intermittent, Less than 6 Hours Per Day (ICD-10-PCS; 2021-02-25)
PROC: 0JH63XZ Insertion of Tunneled Vascular Access Device into Chest Subcutaneous Tissue and Fascia, Percutaneous Approach (ICD-10-PCS; principal; 2021-02-25 10:21)
DX: N17.9 Acute kidney failure, unspecified (principal); S72.002A Fracture of unspecified part of neck of left femur, initial encounter for closed fracture; J96.01 Acute respiratory failure with hypoxia; I69.354 Hemiplegia and hemiparesis following cerebral infarction affecting left non-dominant side; E87.5 Hyperkalemia; N31.9 Neuromuscular dysfunction of bladder, unspecified; E83.52 Hypercalcemia; I10 Essential (primary) hypertension; W18.30XA Fall on same level, unspecified, initial encounter; Y92.009 Unspecified place in unspecified non-institutional (private) residence as the place of occurrence of the external cause; Z79.82 Long term (current) use of aspirin; Z79.899 Other long term (current) drug therapy

== ENCOUNTER 2021-02-28 12:27 | Inpatient (IN) | payer MEDICARE, MEDICAID ==
[~2021-02-28] VITALS: Ht 172.7 cm; Wt 86.8 kg
[~2021-02-28 12:27] MED LIST: AMLO2.5T3 PO; ASPI-161 PO; ATOR1TAB21 PO; DULO30CA9 PO; FAMO20TA4 PO; FERR1TAB8 PO; FINA5TAB2 PO; FISH1000 PO; GABA-282 PO; METO1TAB7 PO; MIRT-60 PO; PANT40TA29 PO; RA M500C PO
[2021-02-28] MEDS ORDERED: oxyCODONE 5MG TAB PO PRN (17:00)
[2021-02-28] MEDS ORDERED: MIRALAX *UNIT DOSE* 17GM PACKET PO PRN (17:00)
[2021-02-28] MEDS ORDERED: ONDANSETRON 4 MG TAB PO PRN (17:00)
[2021-02-28] MEDS ORDERED: BISACODYL 10 MG SUPP PR PRN (17:00)
[2021-02-28] MEDS ORDERED: ASPI-551 PO (17:01)
[2021-02-28 18:20] VITALS: BP 117/74
[2021-02-28] MEDS ORDERED: HOME MED LIST COMPLETE! XX SCH (18:40)
[2021-02-28 20:00] VITALS: BP_SYST 140; BP_SYST 146; BP_DIAS 75
[2021-02-28] MEDS: ATORVASTATIN 20 MG TAB PO SCH (20:39)
[2021-02-28] MEDS: MIRTAZAPINE 15 MG TAB PO SCH (20:39)
[2021-02-28] MEDS: GABAPENTIN 100 MG CAP PO SCH (20:39)
[2021-02-28] MEDS: ACETAMINOPHEN 500 MG TAB PO SCH (20:40)
[2021-02-28] MEDS: FAMOTIDINE 20 MG TAB PO SCH (20:40)
[2021-02-28] MEDS: FINASTERIDE 5 MG TAB PO SCH (20:40)
[2021-02-28] MEDS: DOCUSATE SODIUM 100MG CAPSULE PO SCH (20:40)
[2021-02-28] MEDS: SENNA 8.6 MG TAB (SENOKOT) PO SCH (20:40)
[2021-02-28] MEDS: HEPARIN SOD (PORCINE) 5000UNITS/ML 1ML VIAL/SYRINGE SC SCH (20:41)
[2021-02-28] MEDS: REMEDY PHYTOPLEX Z-GUARD PASTE 113GM TUBE (FROM STOREROOM PRODUCT) TOP SCH (20:42)
[2021-02-28] MEDS ORDERED: METOPROLOL SUCC (TopROL XL) 50MG **XL** TAB PO SCH (21:00)
[2021-03-01 05:55] VITALS: BP 139/77
[2021-03-01 07:01] LABS: BASO # 0.1 10^3/uL (0.0-0.2); BASO % 0.8 % (0.0-1.0); EOS # 0.8 10^3/uL (0.0-0.5); EOS % 7.2 % (0.0-3.0); HEMATOCRIT 33.4 % (42.0-52.0); HEMOGLOBIN 10.8 g/dl (13.5-17.5); LYMPH # 1.4 10^3/uL (1.5-5.0); LYMPH % 12.8 % (24.0-44.0); MEAN CORPUSCULAR HEMOGLOBIN 32.2 pg (27.0-33.0); MEAN CORPUSCULAR HGB CONC 32.3 g/dl (32.0-36.5); MEAN CORPUSCULAR VOLUME 99.7 fl (80.0-96.0); MONO # 1.1 10^3/uL (0.0-0.8); MONO % 10.2 % (2.0-8.0); NEUTROPHILS # 7.3 10^3/uL (1.5-8.5); PLATELET COUNT, AUTOMATED 223 10^3/uL (150-450); RED BLOOD COUNT 3.35 10^6/uL (4.30-6.10); WHITE BLOOD COUNT 10.7 10^3/uL (4.0-10.0)
[2021-03-01 07:41] LABS: ALBUMIN 2.8 GM/DL (3.2-5.2); BILIRUBIN,TOTAL 0.5 MG/DL (0.2-1.0); CALCIUM LEVEL 10.6 MG/DL (8.8-10.2); CREATININE FOR GFR 3.14 MG/DL (0.70-1.30); GLOMERULAR FILTRATION RATE 21.1 (>49); POTASSIUM SERUM 4.1 MEQ/L (3.5-5.1); TOTAL PROTEIN 7.6 GM/DL (6.4-8.2)
[2021-03-01] MEDS: FERROUS SULFATE 325MG TAB PO SCH (08:30)
[2021-03-01] MEDS: DULoxetine 30MG CAPSULE (CYMBALTA) PO SCH (08:30)
[2021-03-01] MEDS: ASCORBIC ACID 500 MG TAB PO SCH (08:30)
[2021-03-01] MEDS: ASPIRIN 81MG ENTERIC TABLET PO SCH (08:30)
[2021-03-01] MEDS: DOCUSATE SODIUM 100MG CAPSULE PO SCH ×2 (08:30→22:57)
[2021-03-01] MEDS: ACETAMINOPHEN 500 MG TAB PO SCH ×3 (08:30→22:55)
[2021-03-01] MEDS: PANTOPRAZOLE 40MG TAB (PROTONIX) PO SCH (08:30)
[2021-03-01] MEDS: GABAPENTIN 100 MG CAP PO SCH ×2 (08:30→22:56)
[2021-03-01] MEDS: HEPARIN SOD (PORCINE) 5000UNITS/ML 1ML VIAL/SYRINGE SC SCH ×2 (08:31→22:54)
[2021-03-01] MEDS: REMEDY PHYTOPLEX Z-GUARD PASTE 113GM TUBE (FROM STOREROOM PRODUCT) TOP SCH ×3 (08:31→22:57)
[2021-03-01 20:00] VITALS: BP 166/73
[2021-03-01] MEDS: METOPROLOL SUCC *XL* 25MG TAB (TopROL *XL*) PO SCH (22:54)
[2021-03-01] MEDS: MIRTAZAPINE 15 MG TAB PO SCH (22:55)
[2021-03-01] MEDS: SENNA 8.6 MG TAB (SENOKOT) PO SCH (22:56)
[2021-03-01] MEDS: ATORVASTATIN 20 MG TAB PO SCH (22:56)
[2021-03-01] MEDS: FINASTERIDE 5 MG TAB PO SCH (22:56)
[2021-03-02 06:00] VITALS: BP 140/77
[2021-03-02] MEDS: ASPIRIN 81MG ENTERIC TABLET PO SCH (07:17)
[2021-03-02] MEDS: ACETAMINOPHEN 500 MG TAB PO SCH ×3 (07:17→20:56)
[2021-03-02] MEDS: ASCORBIC ACID 500 MG TAB PO SCH (07:18)
[2021-03-02] MEDS: DOCUSATE SODIUM 100MG CAPSULE PO SCH ×2 (07:18→21:00)
[2021-03-02] MEDS: GABAPENTIN 100 MG CAP PO SCH ×2 (07:18→20:56)
[2021-03-02] MEDS: DULoxetine 30MG CAPSULE (CYMBALTA) PO SCH (07:18)
[2021-03-02] MEDS: PANTOPRAZOLE 40MG TAB (PROTONIX) PO SCH (07:18)
[2021-03-02] MEDS: FERROUS SULFATE 325MG TAB PO SCH (07:18)
[2021-03-02] MEDS: HEPARIN SOD (PORCINE) 5000UNITS/ML 1ML VIAL/SYRINGE SC SCH ×2 (07:18→20:56)
[2021-03-02] MEDS: REMEDY PHYTOPLEX Z-GUARD PASTE 113GM TUBE (FROM STOREROOM PRODUCT) TOP SCH ×3 (07:19→20:57)
[2021-03-02] MEDS ORDERED: SODIUM CHLORIDE 0.9% 1000ML IV PRN (07:30)
[2021-03-02 09:09] LABS: HEMATOCRIT 33.7 % (42.0-52.0); HEMOGLOBIN 11.2 g/dl (13.5-17.5); MEAN CORPUSCULAR HEMOGLOBIN 32.6 pg (27.0-33.0); MEAN CORPUSCULAR HGB CONC 33.2 g/dl (32.0-36.5); PLATELET COUNT, AUTOMATED 313 10^3/uL (150-450); RED BLOOD COUNT 3.44 10^6/uL (4.30-6.10); WHITE BLOOD COUNT 14.1 10^3/uL (4.0-10.0)
[2021-03-02 09:27] LABS: CALCIUM LEVEL 11.3 MG/DL (8.8-10.2); CREATININE FOR GFR 3.97 MG/DL (0.70-1.30); GLOMERULAR FILTRATION RATE 16.1 (>49); POTASSIUM SERUM 4.5 MEQ/L (3.5-5.1)
[2021-03-02 13:30] LABS: CALCIUM LEVEL 11.3 MG/DL (8.8-10.2); CREATININE FOR GFR 4.04 MG/DL (0.70-1.30); GLOMERULAR FILTRATION RATE 15.8 (>49); POTASSIUM SERUM 4.4 MEQ/L (3.5-5.1)
[2021-03-02 14:00] VITALS: BP 142/72
[2021-03-02 16:49] LABS: C REACTIVE PROTEIN QUANTITATIV 10.1 MG/DL (0.00-0.30)
[2021-03-02 20:00] VITALS: BP 131/71
[2021-03-02] MEDS: MIRTAZAPINE 15 MG TAB PO SCH (20:55)
[2021-03-02] MEDS: METOPROLOL SUCC *XL* 25MG TAB (TopROL *XL*) PO SCH (20:55)
[2021-03-02] MEDS: ATORVASTATIN 20 MG TAB PO SCH (20:56)
[2021-03-02] MEDS: FINASTERIDE 5 MG TAB PO SCH (20:56)
[2021-03-02] MEDS: FAMOTIDINE 20 MG TAB PO SCH (20:56)
[2021-03-02] MEDS: SENNA 8.6 MG TAB (SENOKOT) PO SCH (21:00)
[2021-03-03 06:00] VITALS: BP 134/74
[2021-03-03 07:57] LABS: BASO # 0.1 10^3/uL (0.0-0.2); BASO % 0.7 % (0.0-1.0); EOS # 0.6 10^3/uL (0.0-0.5); HEMATOCRIT 31.3 % (42.0-52.0); HEMOGLOBIN 10.3 g/dl (13.5-17.5); LYMPH % 9.3 % (24.0-44.0); MEAN CORPUSCULAR HEMOGLOBIN 32.1 pg (27.0-33.0); MEAN CORPUSCULAR HGB CONC 32.9 g/dl (32.0-36.5); MEAN CORPUSCULAR VOLUME 97.5 fl (80.0-96.0); MONO # 1.1 10^3/uL (0.0-0.8); MONO % 10.3 % (2.0-8.0); NEUTROPHILS # 7.5 10^3/uL (1.5-8.5); NEUTROPHILS % 72.7 % (36.0-66.0); RED BLOOD COUNT 3.21 10^6/uL (4.30-6.10); WHITE BLOOD COUNT 10.3 10^3/uL (4.0-10.0)
[2021-03-03 08:03] LABS: PLATELET COUNT, AUTOMATED 210 10^3/uL (150-450)
[2021-03-03] MEDS: REMEDY PHYTOPLEX Z-GUARD PASTE 113GM TUBE (FROM STOREROOM PRODUCT) TOP SCH ×3 (09:00→20:35)
[2021-03-03] MEDS: DOCUSATE SODIUM 100MG CAPSULE PO SCH ×2 (09:00→20:35)
[2021-03-03] MEDS: PANTOPRAZOLE 40MG TAB (PROTONIX) PO SCH (09:07)
[2021-03-03] MEDS: DULoxetine 30MG CAPSULE (CYMBALTA) PO SCH (09:07)
[2021-03-03] MEDS: HEPARIN SOD (PORCINE) 5000UNITS/ML 1ML VIAL/SYRINGE SC SCH ×2 (09:07→20:33)
[2021-03-03] MEDS: GABAPENTIN 100 MG CAP PO SCH ×2 (09:07→20:35)
[2021-03-03] MEDS: FERROUS SULFATE 325MG TAB PO SCH (09:07)
[2021-03-03] MEDS: ASPIRIN 81MG ENTERIC TABLET PO SCH (09:07)
[2021-03-03] MEDS: ASCORBIC ACID 500 MG TAB PO SCH (09:08)
[2021-03-03] MEDS: ACETAMINOPHEN 500 MG TAB PO SCH ×3 (09:08→20:33)
[2021-03-03 14:00] VITALS: BP 109/58
[2021-03-03 17:08] LABS: FREE KAPPA LIGHT CHAINS SERUM 79.4 mg/L (3.3-19.4); FREE LAMBDA LIGHT CHAINS SERUM 67.8 mg/L (5.7-26.3); KAPPA/LAMBDA RATIO SERUM 1.17 (0.26-1.65)
[2021-03-03 20:00] VITALS: BP 125/73
[2021-03-03] MEDS: FINASTERIDE 5 MG TAB PO SCH (20:33)
[2021-03-03] MEDS: MIRTAZAPINE 15 MG TAB PO SCH (20:33)
[2021-03-03] MEDS: ATORVASTATIN 20 MG TAB PO SCH (20:34)
[2021-03-03] MEDS: METOPROLOL SUCC *XL* 25MG TAB (TopROL *XL*) PO SCH (20:35)
[2021-03-03] MEDS: SENNA 8.6 MG TAB (SENOKOT) PO SCH (20:35)
[2021-03-04 06:00] VITALS: BP 128/62
[2021-03-04 07:45] LABS: CALCIUM LEVEL 10.5 MG/DL (8.8-10.2); CREATININE FOR GFR 3.57 MG/DL (0.70-1.30); GLOMERULAR FILTRATION RATE 18.2 (>49); POTASSIUM SERUM 4.1 MEQ/L (3.5-5.1)
[2021-03-04] MEDS ORDERED: SODIUM CHLORIDE 0.9% 1000ML IV PRN (08:00)
[2021-03-04 08:17] LABS: BASO # 0.1 10^3/uL (0.0-0.2); BASO % 0.6 % (0.0-1.0); EOS # 0.7 10^3/uL (0.0-0.5); EOS % 6.4 % (0.0-3.0); HEMATOCRIT 30.5 % (42.0-52.0); HEMOGLOBIN 9.9 g/dl (13.5-17.5); LYMPH # 1.1 10^3/uL (1.5-5.0); LYMPH % 9.7 % (24.0-44.0); MEAN CORPUSCULAR HEMOGLOBIN 32.1 pg (27.0-33.0); MEAN CORPUSCULAR HGB CONC 32.5 g/dl (32.0-36.5); MONO % 8.8 % (2.0-8.0); NEUTROPHILS % 73.6 % (36.0-66.0); PLATELET COUNT, AUTOMATED 244 10^3/uL (150-450); RED BLOOD COUNT 3.08 10^6/uL (4.30-6.10); WHITE BLOOD COUNT 10.8 10^3/uL (4.0-10.0)
[2021-03-04] MEDS: REMEDY PHYTOPLEX Z-GUARD PASTE 113GM TUBE (FROM STOREROOM PRODUCT) TOP SCH ×3 (09:00→20:59)
[2021-03-04] MEDS: DOCUSATE SODIUM 100MG CAPSULE PO SCH ×2 (09:00→20:58)
[2021-03-04] MEDS: DARBEPOETIN 100 MCG/0.5 ML *DIALYSIS* SYRINGE (J0882) IV SCH (09:00)
[2021-03-04] MEDS: FERROUS SULFATE 325MG TAB PO SCH (10:11)
[2021-03-04] MEDS: HEPARIN SOD (PORCINE) 5000UNITS/ML 1ML VIAL/SYRINGE SC SCH ×2 (10:11→20:56)
[2021-03-04] MEDS: ACETAMINOPHEN 500 MG TAB PO SCH ×3 (10:12→20:57)
[2021-03-04] MEDS: ASPIRIN 81MG ENTERIC TABLET PO SCH (10:12)
[2021-03-04] MEDS: PANTOPRAZOLE 40MG TAB (PROTONIX) PO SCH (10:13)
[2021-03-04] MEDS: DULoxetine 30MG CAPSULE (CYMBALTA) PO SCH (10:13)
[2021-03-04] MEDS: GABAPENTIN 100 MG CAP PO SCH ×2 (10:13→20:58)
[2021-03-04] MEDS: ASCORBIC ACID 500 MG TAB PO SCH (10:13)
[2021-03-04] MEDS: DICLOFENAC EPOLAMINE 1.3 % PATCH TOP SCH ×2 (12:28→20:56)
[2021-03-04 19:55] VITALS: BP 124/71
[2021-03-04] MEDS: FINASTERIDE 5 MG TAB PO SCH (20:56)
[2021-03-04] MEDS: MIRTAZAPINE 15 MG TAB PO SCH (20:57)
[2021-03-04] MEDS: FAMOTIDINE 20 MG TAB PO SCH (20:57)
[2021-03-04] MEDS: METOPROLOL SUCC *XL* 25MG TAB (TopROL *XL*) PO SCH (20:58)
[2021-03-04] MEDS: SENNA 8.6 MG TAB (SENOKOT) PO SCH (20:58)
[2021-03-04] MEDS: ATORVASTATIN 20 MG TAB PO SCH (20:58)
[2021-03-05 05:59] VITALS: BP 124/66
[2021-03-05] MEDS: DOCUSATE SODIUM 100MG CAPSULE PO SCH ×2 (09:00→20:52)
[2021-03-05] MEDS: REMEDY PHYTOPLEX Z-GUARD PASTE 113GM TUBE (FROM STOREROOM PRODUCT) TOP SCH ×3 (09:00→20:53)
[2021-03-05] MEDS: DICLOFENAC EPOLAMINE 1.3 % PATCH TOP SCH ×2 (09:30→20:53)
[2021-03-05] MEDS: ASPIRIN 81MG ENTERIC TABLET PO SCH (09:31)
[2021-03-05] MEDS: PANTOPRAZOLE 40MG TAB (PROTONIX) PO SCH (09:31)
[2021-03-05] MEDS: HEPARIN SOD (PORCINE) 5000UNITS/ML 1ML VIAL/SYRINGE SC SCH ×2 (09:31→20:50)
[2021-03-05] MEDS: ASCORBIC ACID 500 MG TAB PO SCH (09:31)
[2021-03-05] MEDS: DULoxetine 30MG CAPSULE (CYMBALTA) PO SCH (09:31)
[2021-03-05] MEDS: FERROUS SULFATE 325MG TAB PO SCH (09:31)
[2021-03-05] MEDS: ACETAMINOPHEN 500 MG TAB PO SCH ×3 (09:35→20:50)
[2021-03-05] MEDS: GABAPENTIN 100 MG CAP PO SCH ×2 (09:35→20:51)
[2021-03-05 13:47] VITALS: BP 117/58
[2021-03-05 20:00] VITALS: BP 117/65
[2021-03-05] MEDS: METOPROLOL SUCC *XL* 25MG TAB (TopROL *XL*) PO SCH (20:51)
[2021-03-05] MEDS: ATORVASTATIN 20 MG TAB PO SCH (20:51)
[2021-03-05] MEDS: FINASTERIDE 5 MG TAB PO SCH (20:51)
[2021-03-05] MEDS: SENNA 8.6 MG TAB (SENOKOT) PO SCH (20:52)
[2021-03-05] MEDS: MIRTAZAPINE 15 MG TAB PO SCH (20:52)
[2021-03-06 06:00] VITALS: BP 124/73
[2021-03-06] MEDS: HEPARIN SOD (PORCINE) 5000UNITS/ML 1ML VIAL/SYRINGE SC SCH ×2 (08:32→21:37)
[2021-03-06] MEDS: ASCORBIC ACID 500 MG TAB PO SCH (08:32)
[2021-03-06] MEDS: GABAPENTIN 100 MG CAP PO SCH ×2 (08:32→21:35)
[2021-03-06] MEDS: DULoxetine 30MG CAPSULE (CYMBALTA) PO SCH (08:32)
[2021-03-06] MEDS: ASPIRIN 81MG ENTERIC TABLET PO SCH (08:33)
[2021-03-06] MEDS: PANTOPRAZOLE 40MG TAB (PROTONIX) PO SCH (08:33)
[2021-03-06] MEDS: ACETAMINOPHEN 500 MG TAB PO SCH ×3 (08:33→21:35)
[2021-03-06] MEDS: FERROUS SULFATE 325MG TAB PO SCH (08:33)
[2021-03-06] MEDS: DOCUSATE SODIUM 100MG CAPSULE PO SCH ×2 (08:33→21:00)
[2021-03-06] MEDS: REMEDY PHYTOPLEX Z-GUARD PASTE 113GM TUBE (FROM STOREROOM PRODUCT) TOP SCH ×3 (08:34→21:00)
[2021-03-06] MEDS: DICLOFENAC EPOLAMINE 1.3 % PATCH TOP SCH ×2 (08:34→21:36)
[2021-03-06 15:00] VITALS: BP 109/57
[2021-03-06 20:08] VITALS: BP 117/67
[2021-03-06] MEDS: SENNA 8.6 MG TAB (SENOKOT) PO SCH (21:00)
[2021-03-06] MEDS: FINASTERIDE 5 MG TAB PO SCH (21:36)
[2021-03-06] MEDS: ATORVASTATIN 20 MG TAB PO SCH (21:36)
[2021-03-06] MEDS: MIRTAZAPINE 15 MG TAB PO SCH (21:36)
[2021-03-06] MEDS: METOPROLOL SUCC *XL* 25MG TAB (TopROL *XL*) PO SCH (21:36)
[2021-03-06] MEDS: FAMOTIDINE 20 MG TAB PO SCH (21:36)
[2021-03-07 05:20] VITALS: BP 130/61
[2021-03-07 06:57] LABS: BASO # 0.1 10^3/uL (0.0-0.2); BASO % 0.7 % (0.0-1.0); EOS # 0.7 10^3/uL (0.0-0.5); EOS % 7.6 % (0.0-3.0); HEMATOCRIT 30.4 % (42.0-52.0); HEMOGLOBIN 9.8 g/dl (13.5-17.5); LYMPH # 1.2 10^3/uL (1.5-5.0); LYMPH % 13.8 % (24.0-44.0); MEAN CORPUSCULAR HEMOGLOBIN 32.2 pg (27.0-33.0); MEAN CORPUSCULAR HGB CONC 32.2 g/dl (32.0-36.5); MONO # 0.7 10^3/uL (0.0-0.8); MONO % 8.2 % (2.0-8.0); NEUTROPHILS # 6.1 10^3/uL (1.5-8.5); NEUTROPHILS % 68.1 % (36.0-66.0); PLATELET COUNT, AUTOMATED 241 10^3/uL (150-450); RED BLOOD COUNT 3.04 10^6/uL (4.30-6.10); WHITE BLOOD COUNT 8.9 10^3/uL (4.0-10.0)
[2021-03-07 07:26] LABS: CREATININE FOR GFR 3.26 MG/DL (0.70-1.30); GLOMERULAR FILTRATION RATE 20.2 (>49); POTASSIUM SERUM 4.4 MEQ/L (3.5-5.1)
[2021-03-07] MEDS ORDERED: SODIUM CHLORIDE 0.9% 1000ML IV PRN (07:55)
[2021-03-07] MEDS ORDERED: LIDOCAINE 1% SDV 5ML VIAL SC PRN (07:55)
[2021-03-07] MEDS: ASCORBIC ACID 500 MG TAB PO SCH (08:57)
[2021-03-07] MEDS: GABAPENTIN 100 MG CAP PO SCH ×2 (08:57→20:36)
[2021-03-07] MEDS: FERROUS SULFATE 325MG TAB PO SCH (08:57)
[2021-03-07] MEDS: ASPIRIN 81MG ENTERIC TABLET PO SCH (08:57)
[2021-03-07] MEDS: DOCUSATE SODIUM 100MG CAPSULE PO SCH ×2 (08:57→20:37)
[2021-03-07] MEDS: DULoxetine 30MG CAPSULE (CYMBALTA) PO SCH (08:57)
[2021-03-07] MEDS: HEPARIN SOD (PORCINE) 5000UNITS/ML 1ML VIAL/SYRINGE SC SCH ×2 (08:57→20:37)
[2021-03-07] MEDS: ACETAMINOPHEN 500 MG TAB PO SCH ×3 (08:58→21:00)
[2021-03-07] MEDS: PANTOPRAZOLE 40MG TAB (PROTONIX) PO SCH (08:58)
[2021-03-07] MEDS: REMEDY PHYTOPLEX Z-GUARD PASTE 113GM TUBE (FROM STOREROOM PRODUCT) TOP SCH ×3 (08:59→20:38)
[2021-03-07] MEDS: DICLOFENAC EPOLAMINE 1.3 % PATCH TOP SCH ×2 (08:59→20:38)
[2021-03-07 14:00] VITALS: BP 136/69
[2021-03-07] MEDS: DARBEPOETIN 100 MCG/0.5 ML *DIALYSIS* SYRINGE (J0882) IV SCH (15:41)
[2021-03-07 20:01] VITALS: BP 129/65
[2021-03-07] MEDS: MIRTAZAPINE 15 MG TAB PO SCH (20:36)
[2021-03-07] MEDS: ATORVASTATIN 20 MG TAB PO SCH (20:36)
[2021-03-07] MEDS: SENNA 8.6 MG TAB (SENOKOT) PO SCH (20:37)
[2021-03-07] MEDS: FINASTERIDE 5 MG TAB PO SCH (20:37)
[2021-03-07] MEDS: METOPROLOL SUCC *XL* 25MG TAB (TopROL *XL*) PO SCH (20:37)
[2021-03-08 05:46] VITALS: BP 110/65
[2021-03-08] MEDS: DICLOFENAC EPOLAMINE 1.3 % PATCH TOP SCH ×2 (08:59→21:06)
[2021-03-08] MEDS: HEPARIN SOD (PORCINE) 5000UNITS/ML 1ML VIAL/SYRINGE SC SCH ×2 (08:59→21:06)
[2021-03-08] MEDS: GABAPENTIN 100 MG CAP PO SCH ×2 (08:59→21:04)
[2021-03-08] MEDS: PANTOPRAZOLE 40MG TAB (PROTONIX) PO SCH (09:00)
[2021-03-08] MEDS: DOCUSATE SODIUM 100MG CAPSULE PO SCH ×2 (09:00→21:00)
[2021-03-08] MEDS: REMEDY PHYTOPLEX Z-GUARD PASTE 113GM TUBE (FROM STOREROOM PRODUCT) TOP SCH ×3 (09:00→21:00)
[2021-03-08] MEDS: ACETAMINOPHEN 500 MG TAB PO SCH ×3 (09:00→21:06)
[2021-03-08] MEDS: ASCORBIC ACID 500 MG TAB PO SCH (09:00)
[2021-03-08] MEDS: DULoxetine 30MG CAPSULE (CYMBALTA) PO SCH (09:01)
[2021-03-08] MEDS: ASPIRIN 81MG ENTERIC TABLET PO SCH (09:01)
[2021-03-08 14:00] VITALS: BP 132/72
[2021-03-08 20:00] VITALS: BP 117/57
[2021-03-08] MEDS: SENNA 8.6 MG TAB (SENOKOT) PO SCH (21:00)
[2021-03-08] MEDS: METOPROLOL SUCC *XL* 25MG TAB (TopROL *XL*) PO SCH (21:05)
[2021-03-08] MEDS: MIRTAZAPINE 15 MG TAB PO SCH (21:05)
[2021-03-08] MEDS: FINASTERIDE 5 MG TAB PO SCH (21:05)
[2021-03-08] MEDS: ATORVASTATIN 20 MG TAB PO SCH (21:05)
[2021-03-08] MEDS: FAMOTIDINE 20 MG TAB PO SCH (21:05)
[2021-03-09 06:00] VITALS: BP 115/69
[2021-03-09] MEDS ORDERED: SODIUM CHLORIDE 0.9% 1000ML IV PRN (06:00)
[2021-03-09 06:14] LABS: BASO # 0.1 10^3/uL (0.0-0.2); BASO % 0.9 % (0.0-1.0); EOS # 0.7 10^3/uL (0.0-0.5); EOS % 7.5 % (0.0-3.0); HEMATOCRIT 30.8 % (42.0-52.0); HEMOGLOBIN 10.1 g/dl (13.5-17.5); LYMPH # 1.9 10^3/uL (1.5-5.0); LYMPH % 21.4 % (24.0-44.0); MEAN CORPUSCULAR HEMOGLOBIN 32.1 pg (27.0-33.0); MEAN CORPUSCULAR HGB CONC 32.8 g/dl (32.0-36.5); MEAN CORPUSCULAR VOLUME 97.8 fl (80.0-96.0); MONO # 0.8 10^3/uL (0.0-0.8); MONO % 9.3 % (2.0-8.0); NEUTROPHILS # 5.3 10^3/uL (1.5-8.5); NEUTROPHILS % 59.7 % (36.0-66.0); PLATELET COUNT, AUTOMATED 213 10^3/uL (150-450); RED BLOOD COUNT 3.15 10^6/uL (4.30-6.10); WHITE BLOOD COUNT 8.9 10^3/uL (4.0-10.0)
[2021-03-09 06:42] LABS: CALCIUM LEVEL 11.2 MG/DL (8.8-10.2); CREATININE FOR GFR 3.33 MG/DL (0.70-1.30); GLOMERULAR FILTRATION RATE 19.7 (>49); POTASSIUM SERUM 3.6 MEQ/L (3.5-5.1)
[2021-03-09] MEDS: ACETAMINOPHEN 500 MG TAB PO SCH ×3 (07:21→20:37)
[2021-03-09] MEDS: DICLOFENAC EPOLAMINE 1.3 % PATCH TOP SCH ×2 (07:21→20:37)
[2021-03-09] MEDS: HEPARIN SOD (PORCINE) 5000UNITS/ML 1ML VIAL/SYRINGE SC SCH ×2 (07:21→20:36)
[2021-03-09] MEDS: PANTOPRAZOLE 40MG TAB (PROTONIX) PO SCH (07:22)
[2021-03-09] MEDS: DOCUSATE SODIUM 100MG CAPSULE PO SCH ×2 (07:22→20:36)
[2021-03-09] MEDS: ASCORBIC ACID 500 MG TAB PO SCH (07:22)
[2021-03-09] MEDS: ASPIRIN 81MG ENTERIC TABLET PO SCH (07:22)
[2021-03-09] MEDS: REMEDY PHYTOPLEX Z-GUARD PASTE 113GM TUBE (FROM STOREROOM PRODUCT) TOP SCH ×3 (07:22→20:38)
[2021-03-09] MEDS: DULoxetine 30MG CAPSULE (CYMBALTA) PO SCH (07:22)
[2021-03-09] MEDS: GABAPENTIN 100 MG CAP PO SCH ×2 (07:22→20:36)
[2021-03-09 16:28] VITALS: BP 109/67
[2021-03-09 20:00] VITALS: BP 122/63
[2021-03-09] MEDS: SENNA 8.6 MG TAB (SENOKOT) PO SCH (20:36)
[2021-03-09] MEDS: ATORVASTATIN 20 MG TAB PO SCH (20:37)
[2021-03-09] MEDS: METOPROLOL SUCC *XL* 25MG TAB (TopROL *XL*) PO SCH (20:37)
[2021-03-09] MEDS: MIRTAZAPINE 15 MG TAB PO SCH (20:37)
[2021-03-09] MEDS: FINASTERIDE 5 MG TAB PO SCH (20:37)
[2021-03-10 05:41] VITALS: BP 121/69
[2021-03-10] MEDS: REMEDY PHYTOPLEX Z-GUARD PASTE 113GM TUBE (FROM STOREROOM PRODUCT) TOP SCH ×3 (09:00→20:09)
[2021-03-10] MEDS: GABAPENTIN 100 MG CAP PO SCH ×2 (09:00→20:07)
[2021-03-10] MEDS: HEPARIN SOD (PORCINE) 5000UNITS/ML 1ML VIAL/SYRINGE SC SCH ×2 (09:00→20:06)
[2021-03-10] MEDS: DOCUSATE SODIUM 100MG CAPSULE PO SCH ×2 (09:00→20:09)
[2021-03-10] MEDS: PANTOPRAZOLE 40MG TAB (PROTONIX) PO SCH (09:00)
[2021-03-10] MEDS: ASCORBIC ACID 500 MG TAB PO SCH (09:00)
[2021-03-10] MEDS: DULoxetine 30MG CAPSULE (CYMBALTA) PO SCH (09:00)
[2021-03-10] MEDS: ASPIRIN 81MG ENTERIC TABLET PO SCH (09:00)
[2021-03-10] MEDS: ACETAMINOPHEN 500 MG TAB PO SCH ×3 (09:00→20:08)
[2021-03-10] MEDS: DICLOFENAC EPOLAMINE 1.3 % PATCH TOP SCH ×2 (09:00→20:08)
[2021-03-10 14:00] VITALS: BP 108/55
[2021-03-10 20:00] VITALS: BP 131/60
[2021-03-10] MEDS: METOPROLOL SUCC *XL* 25MG TAB (TopROL *XL*) PO SCH (20:07)
[2021-03-10] MEDS: ATORVASTATIN 20 MG TAB PO SCH (20:08)
[2021-03-10] MEDS: MIRTAZAPINE 15 MG TAB PO SCH (20:08)
[2021-03-10] MEDS: FINASTERIDE 5 MG TAB PO SCH (20:08)
[2021-03-10] MEDS: FAMOTIDINE 20 MG TAB PO SCH (20:08)
[2021-03-10] MEDS: SENNA 8.6 MG TAB (SENOKOT) PO SCH (20:09)
[2021-03-11 06:00] VITALS: BP 154/74
[2021-03-11] MEDS ORDERED: SODIUM CHLORIDE 0.9% 1000ML IV PRN (07:45)
[2021-03-11] MEDS ORDERED: LIDOCAINE 1% SDV 5ML VIAL SC PRN (07:45)
[2021-03-11] MEDS: REMEDY PHYTOPLEX Z-GUARD PASTE 113GM TUBE (FROM STOREROOM PRODUCT) TOP SCH ×3 (09:00→21:00)
[2021-03-11] MEDS: DARBEPOETIN 100 MCG/0.5 ML *DIALYSIS* SYRINGE (J0882) IV SCH (09:00)
[2021-03-11] MEDS: GABAPENTIN 100 MG CAP PO SCH ×2 (09:07→21:37)
[2021-03-11] MEDS: ASCORBIC ACID 500 MG TAB PO SCH (09:07)
[2021-03-11] MEDS: HEPARIN SOD (PORCINE) 5000UNITS/ML 1ML VIAL/SYRINGE SC SCH ×2 (09:07→21:37)
[2021-03-11] MEDS: ASPIRIN 81MG ENTERIC TABLET PO SCH (09:07)
[2021-03-11] MEDS: PANTOPRAZOLE 40MG TAB (PROTONIX) PO SCH (09:07)
[2021-03-11] MEDS: DULoxetine 30MG CAPSULE (CYMBALTA) PO SCH (09:07)
[2021-03-11] MEDS: ACETAMINOPHEN 500 MG TAB PO SCH ×3 (09:07→21:38)
[2021-03-11] MEDS: DOCUSATE SODIUM 100MG CAPSULE PO SCH ×2 (09:08→21:00)
[2021-03-11] MEDS: DICLOFENAC EPOLAMINE 1.3 % PATCH TOP SCH ×2 (09:09→21:36)
[2021-03-11 09:27] LABS: BASO # 0.1 10^3/uL (0.0-0.2); BASO % 0.9 % (0.0-1.0); EOS # 0.6 10^3/uL (0.0-0.5); EOS % 5.8 % (0.0-3.0); HEMATOCRIT 31.9 % (42.0-52.0); HEMOGLOBIN 10.2 g/dl (13.5-17.5); LYMPH # 1.6 10^3/uL (1.5-5.0); LYMPH % 14.8 % (24.0-44.0); MEAN CORPUSCULAR HEMOGLOBIN 31.7 pg (27.0-33.0); MEAN CORPUSCULAR VOLUME 99.1 fl (80.0-96.0); MONO # 0.8 10^3/uL (0.0-0.8); MONO % 7.2 % (2.0-8.0); NEUTROPHILS # 7.4 10^3/uL (1.5-8.5); NEUTROPHILS % 70.6 % (36.0-66.0); PLATELET COUNT, AUTOMATED 295 10^3/uL (150-450); RED BLOOD COUNT 3.22 10^6/uL (4.30-6.10); WHITE BLOOD COUNT 10.5 10^3/uL (4.0-10.0)
[2021-03-11 09:50] LABS: CALCIUM LEVEL 11.6 MG/DL (8.8-10.2); CREATININE FOR GFR 3.63 MG/DL (0.70-1.30); GLOMERULAR FILTRATION RATE 17.9 (>49); POTASSIUM SERUM 3.7 MEQ/L (3.5-5.1)
[2021-03-11 10:39] LABS: PTH INTACT 15.2 PG/ML (18.5-88.0); TOTAL 25(OH) VITAMIN D 42.4 NG/ML (30.0-100.0)
[2021-03-11 15:00] VITALS: BP 118/71
[2021-03-11 20:56] VITALS: BP 142/77
[2021-03-11] MEDS: SENNA 8.6 MG TAB (SENOKOT) PO SCH (21:00)
[2021-03-11] MEDS: ATORVASTATIN 20 MG TAB PO SCH (21:37)
[2021-03-11] MEDS: MIRTAZAPINE 15 MG TAB PO SCH (21:37)
[2021-03-11] MEDS: FINASTERIDE 5 MG TAB PO SCH (21:37)
[2021-03-11] MEDS: METOPROLOL SUCC *XL* 25MG TAB (TopROL *XL*) PO SCH (21:38)
[2021-03-12 05:29] VITALS: BP 153/77
[2021-03-12] MEDS: DOCUSATE SODIUM 100MG CAPSULE PO SCH ×2 (08:36→19:59)
[2021-03-12] MEDS: REMEDY PHYTOPLEX Z-GUARD PASTE 113GM TUBE (FROM STOREROOM PRODUCT) TOP SCH ×3 (08:37→20:00)
[2021-03-12] MEDS: GABAPENTIN 100 MG CAP PO SCH ×2 (08:46→21:05)
[2021-03-12] MEDS: ASPIRIN 81MG ENTERIC TABLET PO SCH (08:46)
[2021-03-12] MEDS: PANTOPRAZOLE 40MG TAB (PROTONIX) PO SCH (08:46)
[2021-03-12] MEDS: ASCORBIC ACID 500 MG TAB PO SCH (08:46)
[2021-03-12] MEDS: HEPARIN SOD (PORCINE) 5000UNITS/ML 1ML VIAL/SYRINGE SC SCH ×2 (08:47→21:05)
[2021-03-12] MEDS: DICLOFENAC EPOLAMINE 1.3 % PATCH TOP SCH ×2 (08:47→21:05)
[2021-03-12] MEDS: DULoxetine 30MG CAPSULE (CYMBALTA) PO SCH (08:47)
[2021-03-12] MEDS: ACETAMINOPHEN 500 MG TAB PO SCH ×3 (08:47→21:04)
[2021-03-12 14:00] VITALS: BP 124/59
[2021-03-12] MEDS: SENNA 8.6 MG TAB (SENOKOT) PO SCH (19:59)
[2021-03-12 20:00] VITALS: BP 122/67
[2021-03-12] MEDS: METOPROLOL SUCC *XL* 25MG TAB (TopROL *XL*) PO SCH (21:04)
[2021-03-12] MEDS: MIRTAZAPINE 15 MG TAB PO SCH (21:04)
[2021-03-12] MEDS: FINASTERIDE 5 MG TAB PO SCH (21:04)
[2021-03-12] MEDS: ATORVASTATIN 20 MG TAB PO SCH (21:04)
[2021-03-12] MEDS: FAMOTIDINE 20 MG TAB PO SCH (21:05)
[2021-03-13 06:00] VITALS: BP 151/70
[2021-03-13] MEDS: ACETAMINOPHEN 500 MG TAB PO SCH ×3 (06:48→20:47)
[2021-03-13] MEDS: DOCUSATE SODIUM 100MG CAPSULE PO SCH ×2 (07:50→19:14)
[2021-03-13] MEDS: GABAPENTIN 100 MG CAP PO SCH ×2 (08:28→20:47)
[2021-03-13] MEDS: PANTOPRAZOLE 40MG TAB (PROTONIX) PO SCH (08:28)
[2021-03-13] MEDS: DULoxetine 30MG CAPSULE (CYMBALTA) PO SCH (08:28)
[2021-03-13] MEDS: HEPARIN SOD (PORCINE) 5000UNITS/ML 1ML VIAL/SYRINGE SC SCH ×2 (08:28→20:48)
[2021-03-13] MEDS: ASCORBIC ACID 500 MG TAB PO SCH (08:28)
[2021-03-13] MEDS: ASPIRIN 81MG ENTERIC TABLET PO SCH (08:28)
[2021-03-13] MEDS: DICLOFENAC EPOLAMINE 1.3 % PATCH TOP SCH ×2 (08:29→20:49)
[2021-03-13] MEDS: REMEDY PHYTOPLEX Z-GUARD PASTE 113GM TUBE (FROM STOREROOM PRODUCT) TOP SCH ×3 (09:00→20:49)
[2021-03-13 14:00] VITALS: BP 131/64
[2021-03-13] MEDS: SENNA 8.6 MG TAB (SENOKOT) PO SCH (19:15)
[2021-03-13 20:00] VITALS: BP 137/76
[2021-03-13] MEDS: ATORVASTATIN 20 MG TAB PO SCH (20:46)
[2021-03-13] MEDS: FINASTERIDE 5 MG TAB PO SCH (20:47)
[2021-03-13] MEDS: MIRTAZAPINE 15 MG TAB PO SCH (20:47)
[2021-03-13] MEDS: METOPROLOL SUCC *XL* 25MG TAB (TopROL *XL*) PO SCH (20:48)
[2021-03-14 06:00] VITALS: BP 148/74
[2021-03-14] MEDS: DOCUSATE SODIUM 100MG CAPSULE PO SCH ×3 (09:00→19:52)
[2021-03-14] MEDS: REMEDY PHYTOPLEX Z-GUARD PASTE 113GM TUBE (FROM STOREROOM PRODUCT) TOP SCH ×3 (09:00→19:53)
[2021-03-14] MEDS: ASPIRIN 81MG ENTERIC TABLET PO SCH (09:17)
[2021-03-14] MEDS: ASCORBIC ACID 500 MG TAB PO SCH (09:17)
[2021-03-14] MEDS: DULoxetine 30MG CAPSULE (CYMBALTA) PO SCH (09:17)
[2021-03-14] MEDS: HEPARIN SOD (PORCINE) 5000UNITS/ML 1ML VIAL/SYRINGE SC SCH ×2 (09:18→20:28)
[2021-03-14] MEDS: PANTOPRAZOLE 40MG TAB (PROTONIX) PO SCH (09:18)
[2021-03-14] MEDS: GABAPENTIN 100 MG CAP PO SCH ×2 (09:18→20:28)
[2021-03-14] MEDS: ACETAMINOPHEN 500 MG TAB PO SCH ×3 (09:19→20:28)
[2021-03-14] MEDS: DICLOFENAC EPOLAMINE 1.3 % PATCH TOP SCH ×2 (09:20→20:29)
[2021-03-14 10:32] LABS: BASO # 0.1 10^3/uL (0.0-0.2); BASO % 0.9 % (0.0-1.0); EOS # 0.8 10^3/uL (0.0-0.5); EOS % 8.3 % (0.0-3.0); HEMATOCRIT 33.8 % (42.0-52.0); HEMOGLOBIN 10.7 g/dl (13.5-17.5); LYMPH # 1.2 10^3/uL (1.5-5.0); LYMPH % 12.2 % (24.0-44.0); MEAN CORPUSCULAR HEMOGLOBIN 31.8 pg (27.0-33.0); MEAN CORPUSCULAR HGB CONC 31.7 g/dl (32.0-36.5); MEAN CORPUSCULAR VOLUME 100.3 fl (80.0-96.0); MONO # 0.7 10^3/uL (0.0-0.8); MONO % 7.1 % (2.0-8.0); NEUTROPHILS # 6.7 10^3/uL (1.5-8.5); NEUTROPHILS % 70.9 % (36.0-66.0); PLATELET COUNT, AUTOMATED 364 10^3/uL (150-450); RED BLOOD COUNT 3.37 10^6/uL (4.30-6.10); WHITE BLOOD COUNT 9.4 10^3/uL (4.0-10.0)
[2021-03-14 10:57] LABS: CALCIUM LEVEL 11.7 MG/DL (8.8-10.2); CREATININE FOR GFR 3.42 MG/DL (0.70-1.30); GLOMERULAR FILTRATION RATE 19.1 (>49); POTASSIUM SERUM 4.3 MEQ/L (3.5-5.1)
[2021-03-14] MEDS ORDERED: SODIUM CHLORIDE 0.9% 1000ML IV PRN (11:40)
[2021-03-14] MEDS ORDERED: DARBEPOETIN 100 MCG/0.5 ML *DIALYSIS* SYRINGE (J0882) IV SCH (11:50)
[2021-03-14] MEDS ORDERED: ALTEPLASE 2MG/2ML VIAL IV PRN (13:05)
[2021-03-14 16:50] VITALS: BP 117/79
[2021-03-14] MEDS: SENNA 8.6 MG TAB (SENOKOT) PO SCH (19:52)
[2021-03-14 20:00] VITALS: BP 138/75
[2021-03-14] MEDS: ATORVASTATIN 20 MG TAB PO SCH (20:28)
[2021-03-14] MEDS: FINASTERIDE 5 MG TAB PO SCH (20:28)
[2021-03-14] MEDS: METOPROLOL SUCC *XL* 25MG TAB (TopROL *XL*) PO SCH (20:28)
[2021-03-14] MEDS: MIRTAZAPINE 15 MG TAB PO SCH (20:28)
[2021-03-14] MEDS: FAMOTIDINE 20 MG TAB PO SCH (20:28)
[2021-03-15 06:00] VITALS: BP 122/69
[2021-03-15] MEDS: DICLOFENAC EPOLAMINE 1.3 % PATCH TOP SCH (08:42)
[2021-03-15] MEDS: HEPARIN SOD (PORCINE) 5000UNITS/ML 1ML VIAL/SYRINGE SC SCH (08:42)
[2021-03-15] MEDS: GABAPENTIN 100 MG CAP PO SCH (08:43)
[2021-03-15] MEDS: ASPIRIN 81MG ENTERIC TABLET PO SCH (08:43)
[2021-03-15] MEDS: ASCORBIC ACID 500 MG TAB PO SCH (08:43)
[2021-03-15] MEDS: PANTOPRAZOLE 40MG TAB (PROTONIX) PO SCH (08:43)
[2021-03-15] MEDS: ACETAMINOPHEN 500 MG TAB PO SCH (08:43)
[2021-03-15 08:44] VITALS: BP 122/69
[2021-03-15] MEDS: DULoxetine 30MG CAPSULE (CYMBALTA) PO SCH (08:44)
[2021-03-15] MEDS: REMEDY PHYTOPLEX Z-GUARD PASTE 113GM TUBE (FROM STOREROOM PRODUCT) TOP SCH (08:45)
[2021-03-15] MEDS: DOCUSATE SODIUM 100MG CAPSULE PO SCH (08:45)
[2021-03-15] MEDS ORDERED: PANT40TA29 PO (09:14)
[2021-03-15] MEDS ORDERED: FINA5TAB2 PO (09:14)
[2021-03-15] MEDS ORDERED: AMLO2.5T3 PO (09:14)
[2021-03-15] MEDS ORDERED: ATOR1TAB21 PO (09:14)
[2021-03-15] MEDS ORDERED: METO1TAB7 PO (09:15)
[2021-03-15] MEDS ORDERED: FAMO20TA PO (09:15)
[2021-03-15] MEDS ORDERED: ASPI-551 PO (09:15)
[2021-03-15] MEDS ORDERED: MIRT-60 PO (09:15)
[2021-03-15] MEDS ORDERED: GABA-1171 PO (09:15)
[2021-03-15] MEDS ORDERED: FERR1TAB8 PO (09:15)
[2021-03-15] MEDS ORDERED: DULO30CA9 PO (09:15)
[2021-03-15 20:12] LABS: ANGIOTENSIN 1 CONVERTING ENZYM 37 U/L (14-82); PTH RELATED PEPTIDE < 2.0 pmol/L (.)
[2021-04-06] MEDS ORDERED: DARBEPOETIN 40 MCG/0.4 ML *DIALYSIS* SYRINGE (J0882) SQ SCH (09:00)
== END 2021-03-15 10:45 | disposition home health service (06) | DRG 559 ==
LOC: M PM&R 18:20
PROVIDERS: ADMIT Physical Medicine & Rehabilitation; ATTEND Physical Medicine & Rehabilitation
PROC: 5A1D70Z Performance of Urinary Filtration, Intermittent, Less than 6 Hours Per Day (ICD-10-PCS; principal; 2021-03-02)
DX: S72.002D Fracture of unspecified part of neck of left femur, subsequent encounter for closed fracture with routine healing (principal); N18.6 End stage renal disease; I12.0 Hypertensive chronic kidney disease with stage 5 chronic kidney disease or end stage renal disease; I69.354 Hemiplegia and hemiparesis following cerebral infarction affecting left non-dominant side; J84.9 Interstitial pulmonary disease, unspecified; N31.9 Neuromuscular dysfunction of bladder, unspecified; G62.9 Polyneuropathy, unspecified; Z96.642 Presence of left artificial hip joint; Z74.09 Other reduced mobility; Z74.1 Need for assistance with personal care; Z99.2 Dependence on renal dialysis; Z79.82 Long term (current) use of aspirin; Z79.899 Other long term (current) drug therapy; D63.1 Anemia in chronic kidney disease; E83.52 Hypercalcemia; I50.9 Heart failure, unspecified; W18.30XD Fall on same level, unspecified, subsequent encounter; Y92.009 Unspecified place in unspecified non-institutional (private) residence as the place of occurrence of the external cause

== ENCOUNTER → 2021-04-12 | Outpatient (CLI) | payer MEDICARE, MEDICAID ==
[~2021-04-12] MED LIST changes: +ASPI-551 PO; +FAMO20TA PO; +GABA-1171 PO
== END ==
LOC: M SOG 08:08
PROVIDERS: ATTEND Orthopaedic Surgery Adult Reconstructive Orthopaedic Surgery
DX: Z96.642 Presence of left artificial hip joint (principal)

== ENCOUNTER 2021-04-25 20:14 | Emergency (ER) | payer MEDICARE, MEDICAID ==
[~2021-04-25] VITALS: Ht 172.7 cm; Wt 86.0 kg
[2021-04-25] MEDS ORDERED: NS 500 ML IV ONE (20:45)
[2021-04-25 21:35] LABS: BASO # 0.1 10^3/uL (0.0-0.2); BASO % 0.6 % (0.0-1.0); EOS # 0.6 10^3/uL (0.0-0.5); EOS % 4.4 % (0.0-3.0); HEMATOCRIT 35.4 % (42.0-52.0); HEMOGLOBIN 11.4 g/dl (13.5-17.5); LYMPH % 7.6 % (24.0-44.0); MEAN CORPUSCULAR HEMOGLOBIN 31.6 pg (27.0-33.0); MEAN CORPUSCULAR HGB CONC 32.2 g/dl (32.0-36.5); MEAN CORPUSCULAR VOLUME 98.1 fl (80.0-96.0); MONO # 1.1 10^3/uL (0.0-0.8); MONO % 8.4 % (2.0-8.0); NEUTROPHILS # 9.9 10^3/uL (1.5-8.5); NEUTROPHILS % 78.2 % (36.0-66.0); PLATELET COUNT, AUTOMATED 320 10^3/uL (150-450); RED BLOOD COUNT 3.61 10^6/uL (4.30-6.10); WHITE BLOOD COUNT 12.6 10^3/uL (4.0-10.0)
[2021-04-25] MEDS ORDERED: METOPROLOL SUCC *XL* 25MG TAB (TopROL *XL*) PO ONE (21:40)
[2021-04-25 21:54] LABS: BLOOD UREA NITROGEN 12 MG/DL (7-18); CALCIUM LEVEL 9.1 MG/DL (8.8-10.2); CARBON DIOXIDE LEVEL 29 MEQ/L (21-32); CHLORIDE LEVEL 101 MEQ/L (98-107); GLOMERULAR FILTRATION RATE > 60.0 (>49); GLUCOSE, FASTING 106 MG/DL (70-100); POTASSIUM SERUM 4.2 MEQ/L (3.5-5.1); SODIUM LEVEL 137 MEQ/L (136-145)
[2021-04-25 22:22] LABS: CK-MB VALUE MASS < 1.0 NG/ML (<3.6); CPK CREATINE PHOSPHOKINASE 209 U/L (39-308); MB/CK RELATIVE INDEX 0.48 (< OR =4)
[2021-04-25 23:40] LABS: CK-MB VALUE MASS < 1.0 NG/ML (<3.6); CPK CREATINE PHOSPHOKINASE 22 U/L (39-308); MB/CK RELATIVE INDEX 4.55 (< OR =4)
[2021-04-25 23:46] VITALS: BP 127/75
[2021-04-26] MEDS ORDERED: cefTRIAXone SOD 1 GM in D5W MINI-BAG PLUS 50 ML IV ONE (00:25)
[2021-04-26] MEDS ORDERED: CEPH500C PO (00:26)
== END 2021-04-26 02:16 | disposition home or self-care (01) ==
LOC: M ED 20:14
DX: N39.0 Urinary tract infection, site not specified (principal); I10 Essential (primary) hypertension; R94.31 Abnormal electrocardiogram [ECG] [EKG]; I50.9 Heart failure, unspecified; N18.9 Chronic kidney disease, unspecified; Z86.79 Personal history of other diseases of the circulatory system; Z79.4 Long term (current) use of insulin; Z79.899 Other long term (current) drug therapy
CPT/HCPCS: 71045; 80048; 81001; 82550; 82553; 83605; 84484; 85025; 87040; 87088; 87186; 87798; 93005; 93041; 94760; 96361; 96365; 99285; J0696

== ENCOUNTER → 2022-02-16 | Outpatient (CLI) | payer MEDICARE, MEDICAID ==
[~2022-02-16] MED LIST changes: +CEPH500C PO
== END ==
LOC: M SOG 08:33
PROVIDERS: ATTEND Orthopaedic Surgery Adult Reconstructive Orthopaedic Surgery
DX: Z96.642 Presence of left artificial hip joint (principal)